=== PATIENT | male | born 1990 | race Two or more races ===

== ENCOUNTER 2018-11-04 00:28 | Inpatient (IN) | payer MEDICARE, MEDICAID ==
[~2018-11-04] VITALS: Ht 172.7 cm; Wt 107.3 kg
[~2018-11-04 00:28] MED LIST: LEVO75TA4 PO; LURA20TA PO; SIMV-259 PO
[2018-11-04 01:30] VITALS: BP 127/84
[2018-11-04] MEDS ORDERED: MAGNESIUM HYDROXIDE SUSPENSION 30 ML UDCUP PO PRN (06:15)
[2018-11-04] MEDS ORDERED: PETROLATUM,WHITE 28 GM JELLY TP PRN (06:15)
[2018-11-04] MEDS ORDERED: ALBUTEROL SULFATE HFA 90 MCG/PUFF 8 GM INHALER IH PRN (06:15)
[2018-11-04] MEDS ORDERED: DOCUSATE SODIUM 100 MG CAPSULE PO PRN (06:15)
[2018-11-04] MEDS ORDERED: CloNIDine HCL 0.1 MG TABLET PO PRN (06:15)
[2018-11-04] MEDS ORDERED: LOPERAMIDE HCL 2 MG CAPSULE PO PRN (06:15)
[2018-11-04] MEDS ORDERED: ONDANSETRON HCL 4 MG TABLET PO PRN (06:15)
[2018-11-04 08:15] VITALS: BP 113/65
[2018-11-04] MEDS: OLANZapine 5 MG TABLET PO SCH (11:02)
[2018-11-04] MEDS: BENZTROPINE MESYLATE 2 MG TABLET PO SCH ×2 (11:02→16:12)
[2018-11-04 14:35] VITALS: BP 120/60
[2018-11-04] MEDS: ACETAMINOPHEN 325 MG TABLET PO PRN (14:35)
[2018-11-04 16:12] VITALS: BP 119/67
[2018-11-04] MEDS: SIMVASTATIN 10 MG TABLET PO SCH (20:27)
[2018-11-04] MEDS: OLANZapine 10 MG TABLET PO SCH (20:28)
[2018-11-04] MEDS: DIVALPROEX SODIUM 500 MG DR TABLET PO SCH (20:28)
[2018-11-04] MEDS: GuaiFENesin/D-METHORPHAN [SUGAR-FREE] 200-20MG/10 ML SYRUP UDCUP PO PRN (21:19)
[2018-11-05 00:48] VITALS: BP 118/72
[2018-11-05] MEDS: LEVOTHYROXINE SODIUM 75 MCG TABLET PO SCH (06:54)
[2018-11-05 08:47] LABS: BASOPHILS % (AUTO) 0.3 % (0.0-2.0); EOSINOPHILS % (AUTO) 3.4 % (1.0-6.0); HEMATOCRIT 42.2 % (41-53); LYMPHOCYTES # (AUTO) 5.9 K/uL (1.0-4.8); LYMPHOCYTES % (AUTO) 34.6 % (22.0-44.0); MEAN CORPUSCULAR HEMOGLOBIN 29.6 pg (26.0-34.0); MEAN CORPUSCULAR HGB CONC 33.1 G/dL (31.0-37.0); MEAN CORPUSCULAR VOLUME 89 fL (80-100); MONOCYTES # (AUTO) 0.7 K/uL (0.1-1.0); MONOCYTES % (AUTO) 4.3 % (2.0-9.0); NEUTROPHILS # (AUTO) 9.7 K/uL (1.8-7.7); NEUTROPHILS % (AUTO) 57.4 % (40.0-70.0); PLATELET COUNT (AUTO) 337 K/uL (150-450); RED BLOOD CELL COUNT(AUTO) 4.73 MIL/uL (4.50-5.90); RED CELL DISTRIBUTION WIDTH 13.7 % (11.5-14.5)
[2018-11-05 09:01] LABS: ALANINE AMINOTRANSFERASE 33 U/L (12-78); ALBUMIN 3.3 g/dL (3.4-5.0); ALKALINE PHOSPHATASE 57 U/L (46-116); ANION GAP 8 mmol/L (8-16); ASPARTATE AMINOTRANSFERASE 28 U/L (15-37); BILIRUBIN,TOTAL 0.3 mg/dL (0.1-1.0); CALCIUM, TOTAL 8.2 mg/dL (8.8-10.5); CARBON DIOXIDE 25 mmol/L (22-29); CHLORIDE 106 mmol/L (98-107); CHOL/HDL RATIO 5.1 (4.2-7.3); CHOLESTEROL 107 mg/dL (131-200); CREATININE 0.88 mg/dL (0.60-1.30); GLOMERULAR FILTR. RATE CALC > 60 mL/min (>60); GLUCOSE,RANDOM 83 mg/dL (70-110); HDL CHOLESTEROL 21 mg/dL (40-60); LDL CHOL (CALC.) 41 mg/dL (0-130); POTASSIUM 3.9 mmol/L (3.5-5.1); SODIUM SERUM 139 mmol/L (136-145); THYROID STIMULATING HORMONE 1.81 uIU/mL (0.36-3.74); TOTAL PROTEIN, SERUM 6.3 g/dL (6.4-8.2); TRIGLYCERIDES 224 mg/dL (15-150); UREA NITROGEN, BLOOD 13 mg/dL (7-18)
[2018-11-05 09:17] LABS: HEMOGLOBIN A1C 5.1 % (4.5-6.2)
[2018-11-05] MEDS: OLANZapine 5 MG TABLET PO SCH (09:36)
[2018-11-05] MEDS: BENZTROPINE MESYLATE 2 MG TABLET PO SCH ×2 (09:36→16:35)
[2018-11-05 14:48] VITALS: BP 112/68
[2018-11-05] MEDS: ACETAMINOPHEN 325 MG TABLET PO PRN (14:48)
[2018-11-05 16:14] VITALS: BP 116/68
[2018-11-05] MEDS: NICOTINE 14 MG/24 HOUR PATCH TD PRN (16:50)
[2018-11-05] MEDS: OLANZapine 10 MG TABLET PO SCH (20:02)
[2018-11-05] MEDS: DIVALPROEX SODIUM 500 MG DR TABLET PO SCH (20:02)
[2018-11-05] MEDS: SIMVASTATIN 10 MG TABLET PO SCH (20:03)
[2018-11-05] MEDS: ZOLPIDEM TARTRATE 10 MG TABLET PO PRN (21:57)
[2018-11-06 01:57] VITALS: BP 117/71
[2018-11-06] MEDS: LEVOTHYROXINE SODIUM 75 MCG TABLET PO SCH (06:52)
[2018-11-06 08:46] LABS: BILIRUBIN,URINE NEGATIVE (NEGATIVE); GLUCOSE, URINE (UA) NEGATIVE (NEGATIVE); KETONES,URINE TRACE mg/dL (NEGATIVE); LEUKOCYTE ESTERASE ,URINE NEGATIVE (NEGATIVE); NITRATE,URINE NEGATIVE (NEGATIVE); OCCULT BLOOD,URINE NEGATIVE (NEGATIVE); PH,URINE 5.5 (5.0-8.0); PROTEIN,URINE NEGATIVE (NEGATIVE); UROBILINOGEN,URINE 0.2 mg/dL (<=1.0)
[2018-11-06 08:48] VITALS: BP 116/69
[2018-11-06 08:52] LABS: AMPHET/METH SCREEN,URINE NEGATIVE (NEGATIVE); BARBITURATE SCREEN, URINE NEGATIVE (NEGATIVE); BENZODIAZEPINES SCREEN,URINE NEGATIVE (NEGATIVE); CANNABINOID SCREEN,URINE POSITIVE (NEGATIVE); COCAINE SCREEN,URINE NEGATIVE (NEGATIVE); METHADONE SCREEN, URINE NEGATIVE (NEGATIVE); OPIATE SCREEN,URINE NEGATIVE (NEGATIVE)
[2018-11-06 08:53] LABS: PHENCYCLIDINE SCREEN,URINE NEGATIVE (NEGATIVE)
[2018-11-06 09:20] LABS: APPEARANCE,URINE HAZY (CLEAR)
[2018-11-06] MEDS: BENZTROPINE MESYLATE 2 MG TABLET PO SCH ×2 (09:37→16:40)
[2018-11-06] MEDS: OLANZapine 5 MG TABLET PO SCH (09:37)
[2018-11-06] MEDS: ACETAMINOPHEN 325 MG TABLET PO PRN ×2 (13:59→22:08)
[2018-11-06 16:18] VITALS: BP 122/73
[2018-11-06 18:30] VITALS: BP 125/82
[2018-11-06] MEDS: IBUPROFEN 400 MG TABLET PO PRN (18:31)
[2018-11-06] MEDS: DIVALPROEX SODIUM 500 MG DR TABLET PO SCH (20:32)
[2018-11-06] MEDS: SIMVASTATIN 10 MG TABLET PO SCH (20:32)
[2018-11-06] MEDS: OLANZapine 10 MG TABLET PO SCH (20:32)
[2018-11-07 06:28] VITALS: BP 115/76
[2018-11-07] MEDS: LEVOTHYROXINE SODIUM 75 MCG TABLET PO SCH (06:31)
[2018-11-07 08:27] VITALS: BP 107/68
[2018-11-07] MEDS: BENZTROPINE MESYLATE 2 MG TABLET PO SCH ×2 (08:51→16:06)
[2018-11-07] MEDS: OLANZapine 5 MG TABLET PO SCH (08:53)
[2018-11-07] MEDS: NICOTINE 14 MG/24 HOUR PATCH TD PRN (16:08)
[2018-11-07 16:19] VITALS: BP 117/74
[2018-11-07] MEDS: GuaiFENesin/D-METHORPHAN [SUGAR-FREE] 200-20MG/10 ML SYRUP UDCUP PO PRN (16:34)
[2018-11-07] MEDS: DIVALPROEX SODIUM 500 MG DR TABLET PO SCH (20:08)
[2018-11-07] MEDS: SIMVASTATIN 10 MG TABLET PO SCH (20:08)
[2018-11-07] MEDS: OLANZapine 10 MG TABLET PO SCH (20:08)
[2018-11-07 22:53] VITALS: BP 116/74
[2018-11-07] MEDS: ACETAMINOPHEN 325 MG TABLET PO PRN (22:53)
[2018-11-08 05:18] VITALS: BP 120/81
[2018-11-08] MEDS: LEVOTHYROXINE SODIUM 75 MCG TABLET PO SCH (07:00)
[2018-11-08] MEDS: BENZTROPINE MESYLATE 2 MG TABLET PO SCH ×2 (09:55→16:57)
[2018-11-08] MEDS: OLANZapine 5 MG TABLET PO SCH (09:56)
[2018-11-08 16:38] VITALS: BP 117/73
[2018-11-08] MEDS: ACETAMINOPHEN 325 MG TABLET PO PRN (20:20)
[2018-11-08] MEDS: DIVALPROEX SODIUM 500 MG DR TABLET PO SCH (20:20)
[2018-11-08] MEDS: SIMVASTATIN 10 MG TABLET PO SCH (20:20)
[2018-11-08] MEDS: OLANZapine 10 MG TABLET PO SCH (20:20)
[2018-11-08] MEDS: ZOLPIDEM TARTRATE 10 MG TABLET PO PRN (21:56)
[2018-11-09 00:16] VITALS: BP 136/76
[2018-11-09] MEDS: LEVOTHYROXINE SODIUM 75 MCG TABLET PO SCH (06:08)
[2018-11-09 08:13] VITALS: BP 142/89
[2018-11-09 08:26] LABS: BASOPHILS % (AUTO) 0.3 % (0.0-2.0); EOSINOPHILS % (AUTO) 4.6 % (1.0-6.0); HEMATOCRIT 43.1 % (41-53); HEMOGLOBIN 15.2 g/dL (13.5-17.5); LYMPHOCYTES # (AUTO) 6.1 K/uL (1.0-4.8); LYMPHOCYTES % (AUTO) 58.2 % (22.0-44.0); MEAN CORPUSCULAR HGB CONC 35.3 G/dL (31.0-37.0); MEAN CORPUSCULAR VOLUME 88 fL (80-100); MONOCYTES # (AUTO) 0.6 K/uL (0.1-1.0); MONOCYTES % (AUTO) 5.4 % (2.0-9.0); NEUTROPHILS # (AUTO) 3.3 K/uL (1.8-7.7); NEUTROPHILS % (AUTO) 31.5 % (40.0-70.0); PLATELET COUNT (AUTO) 307 K/uL (150-450); RED BLOOD CELL COUNT(AUTO) 4.91 MIL/uL (4.50-5.90); RED CELL DISTRIBUTION WIDTH 13.4 % (11.5-14.5)
[2018-11-09] MEDS: OLANZapine 5 MG TABLET PO SCH (08:50)
[2018-11-09] MEDS: BENZTROPINE MESYLATE 2 MG TABLET PO SCH ×2 (08:50→16:28)
[2018-11-09] MEDS: NICOTINE 14 MG/24 HOUR PATCH TD PRN (12:17)
[2018-11-09] MEDS: IBUPROFEN 400 MG TABLET PO PRN (16:02)
[2018-11-09 16:22] VITALS: BP 131/76
[2018-11-09] MEDS: OLANZapine 10 MG TABLET PO SCH (20:42)
[2018-11-09] MEDS: SIMVASTATIN 10 MG TABLET PO SCH (20:42)
[2018-11-09] MEDS: DIVALPROEX SODIUM 500 MG DR TABLET PO SCH (20:42)
[2018-11-10 02:47] VITALS: BP 139/75
[2018-11-10] MEDS: LEVOTHYROXINE SODIUM 75 MCG TABLET PO SCH (06:41)
[2018-11-10] MEDS ORDERED: LOPERAMIDE HCL 2 MG CAPSULE PO PRN (07:15)
[2018-11-10 08:10] VITALS: BP 126/72
[2018-11-10] MEDS: OLANZapine 5 MG TABLET PO SCH (08:14)
[2018-11-10] MEDS: BENZTROPINE MESYLATE 2 MG TABLET PO SCH ×2 (08:14→16:35)
[2018-11-10] MEDS: LORazepam 2 MG TABLET PO PRN (08:14)
[2018-11-10 16:31] VITALS: BP 124/86
[2018-11-10] MEDS: ACETAMINOPHEN 325 MG TABLET PO PRN (20:23)
[2018-11-10] MEDS: SIMVASTATIN 10 MG TABLET PO SCH (20:33)
[2018-11-10] MEDS: DIVALPROEX SODIUM 500 MG DR TABLET PO SCH (20:33)
[2018-11-10] MEDS: OLANZapine 10 MG TABLET PO SCH (20:33)
[2018-11-11 01:00] VITALS: BP 127/77
[2018-11-11] MEDS: LEVOTHYROXINE SODIUM 75 MCG TABLET PO SCH (06:38)
[2018-11-11 08:11] LABS: ANION GAP 4 mmol/L (8-16); CALCIUM, TOTAL 8.7 mg/dL (8.8-10.5); CARBON DIOXIDE 33 mmol/L (22-29); CHLORIDE 102 mmol/L (98-107); CREATININE 0.83 mg/dL (0.60-1.30); GLOMERULAR FILTR. RATE CALC > 60 mL/min (>60); GLUCOSE,RANDOM 95 mg/dL (70-110); POTASSIUM 4.4 mmol/L (3.5-5.1); SODIUM SERUM 139 mmol/L (136-145); UREA NITROGEN, BLOOD 13 mg/dL (7-18)
[2018-11-11] MEDS: BENZTROPINE MESYLATE 2 MG TABLET PO SCH ×2 (08:47→16:53)
[2018-11-11] MEDS: OLANZapine 5 MG TABLET PO SCH (08:47)
[2018-11-11 13:39] VITALS: BP 118/78
[2018-11-11] MEDS: ACETAMINOPHEN 325 MG TABLET PO PRN ×2 (13:39→22:31)
[2018-11-11 16:17] VITALS: BP 136/80
[2018-11-11] MEDS: OLANZapine 10 MG TABLET PO SCH (20:03)
[2018-11-11] MEDS: DIVALPROEX SODIUM 500 MG DR TABLET PO SCH (20:03)
[2018-11-11] MEDS: SIMVASTATIN 10 MG TABLET PO SCH (20:04)
[2018-11-11 22:31] VITALS: BP 124/76
[2018-11-12 04:39] VITALS: BP 117/78
[2018-11-12] MEDS: LEVOTHYROXINE SODIUM 75 MCG TABLET PO SCH (06:40)
[2018-11-12] MEDS: ACETAMINOPHEN 325 MG TABLET PO PRN ×2 (07:05→16:08)
[2018-11-12 08:33] VITALS: BP 126/80
[2018-11-12] MEDS: OLANZapine 5 MG TABLET PO SCH (08:45)
[2018-11-12] MEDS: BENZTROPINE MESYLATE 2 MG TABLET PO SCH ×2 (08:45→16:08)
[2018-11-12 16:01] VITALS: BP 135/90
[2018-11-12] MEDS: NICOTINE 14 MG/24 HOUR PATCH TD PRN (19:19)
[2018-11-12] MEDS: DIVALPROEX SODIUM 500 MG DR TABLET PO SCH (20:03)
[2018-11-12] MEDS: SIMVASTATIN 10 MG TABLET PO SCH (20:04)
[2018-11-12] MEDS: OLANZapine 10 MG TABLET PO SCH (20:04)
[2018-11-12 20:05] VITALS: BP 128/78
[2018-11-12] MEDS: IBUPROFEN 400 MG TABLET PO PRN (20:05)
[2018-11-13 01:14] VITALS: BP 132/88
[2018-11-13] MEDS: ACETAMINOPHEN 325 MG TABLET PO PRN (01:16)
[2018-11-13] MEDS: LEVOTHYROXINE SODIUM 75 MCG TABLET PO SCH (07:01)
[2018-11-13 08:00] VITALS: BP 150/74
[2018-11-13] MEDS: OLANZapine 5 MG TABLET PO SCH (09:11)
[2018-11-13] MEDS: BENZTROPINE MESYLATE 2 MG TABLET PO SCH ×2 (09:12→16:36)
[2018-11-13] MEDS: OLANZapine 10 MG TABLET PO SCH (20:38)
[2018-11-13] MEDS: SIMVASTATIN 10 MG TABLET PO SCH (20:38)
[2018-11-13] MEDS: DIVALPROEX SODIUM 500 MG DR TABLET PO SCH (20:38)
[2018-11-14 00:05] VITALS: BP 131/89
[2018-11-14] MEDS: LEVOTHYROXINE SODIUM 75 MCG TABLET PO SCH (07:05)
[2018-11-14 08:21] VITALS: BP 128/84
[2018-11-14] MEDS: OLANZapine 5 MG TABLET PO SCH (08:38)
[2018-11-14] MEDS: BENZTROPINE MESYLATE 2 MG TABLET PO SCH ×2 (08:38→16:37)
[2018-11-14 16:38] VITALS: BP 137/89
[2018-11-14] MEDS: ACETAMINOPHEN 325 MG TABLET PO PRN ×2 (18:24→23:41)
[2018-11-14] MEDS: OLANZapine 10 MG TABLET PO SCH (20:38)
[2018-11-14] MEDS: DIVALPROEX SODIUM 500 MG DR TABLET PO SCH (20:38)
[2018-11-14] MEDS: SIMVASTATIN 10 MG TABLET PO SCH (20:38)
[2018-11-15] VITALS: BP 136/84
[2018-11-15] MEDS: LEVOTHYROXINE SODIUM 75 MCG TABLET PO SCH (06:55)
[2018-11-15] MEDS: OLANZapine 5 MG TABLET PO SCH (08:46)
[2018-11-15] MEDS: BENZTROPINE MESYLATE 2 MG TABLET PO SCH ×2 (08:46→16:36)
[2018-11-15 08:49] LABS: ANION GAP 6 mmol/L (8-16); CALCIUM, TOTAL 8.8 mg/dL (8.8-10.5); CARBON DIOXIDE 31 mmol/L (22-29); CHLORIDE 101 mmol/L (98-107); CREATININE 0.75 mg/dL (0.60-1.30); GLOMERULAR FILTR. RATE CALC > 60 mL/min (>60); GLUCOSE,RANDOM 94 mg/dL (70-110); POTASSIUM 3.9 mmol/L (3.5-5.1); SODIUM SERUM 138 mmol/L (136-145); UREA NITROGEN, BLOOD 16 mg/dL (7-18)
[2018-11-15] MEDS ORDERED: TUBERCULIN, PURIFIED PROTEIN DERIVATIVE 5 TU/0.1 ML SYRINGE ID ONE (11:30)
[2018-11-15] MEDS: ACETAMINOPHEN 325 MG TABLET PO PRN (17:22)
[2018-11-15] MEDS: LORazepam 2 MG TABLET PO PRN (18:05)
[2018-11-15] MEDS: QUEtiapine FUMARATE 100 MG TABLET PO PRN (18:08)
[2018-11-15] MEDS: DIVALPROEX SODIUM 500 MG DR TABLET PO SCH (20:40)
[2018-11-15] MEDS: SIMVASTATIN 10 MG TABLET PO SCH (20:40)
[2018-11-15] MEDS: OLANZapine 10 MG TABLET PO SCH (20:40)
[2018-11-16] MEDS: ACETAMINOPHEN 325 MG TABLET PO PRN ×2 (00:56→20:34)
[2018-11-16 01:00] VITALS: BP 128/69
[2018-11-16] MEDS: LEVOTHYROXINE SODIUM 75 MCG TABLET PO SCH (06:31)
[2018-11-16 08:29] VITALS: BP 109/65
[2018-11-16] MEDS: BENZTROPINE MESYLATE 2 MG TABLET PO SCH ×2 (08:49→17:15)
[2018-11-16] MEDS: OLANZapine 5 MG TABLET PO SCH (08:49)
[2018-11-16] MEDS ORDERED: MULTIVITAMINS, THERAPEUTIC TABLET PO SCH (09:00)
[2018-11-16] MEDS: OLANZapine 10 MG TABLET PO SCH (20:49)
[2018-11-16] MEDS: SIMVASTATIN 10 MG TABLET PO SCH (20:49)
[2018-11-16] MEDS: DIVALPROEX SODIUM 500 MG DR TABLET PO SCH (20:49)
[2018-11-16] MEDS: IBUPROFEN 400 MG TABLET PO PRN (22:31)
[2018-11-17 01:00] VITALS: BP 140/88
[2018-11-17] MEDS: LORazepam 2 MG TABLET PO PRN (01:07)
[2018-11-17] MEDS: LEVOTHYROXINE SODIUM 75 MCG TABLET PO SCH (06:33)
[2018-11-17] MEDS: OLANZapine 5 MG TABLET PO SCH (08:47)
[2018-11-17] MEDS: BENZTROPINE MESYLATE 2 MG TABLET PO SCH ×2 (08:47→20:04)
[2018-11-17] MEDS: BuPROPion HCL XL 150 MG ER TABLET PO SCH (12:38)
[2018-11-17 13:19] VITALS: BP 128/82
[2018-11-17] MEDS: ACETAMINOPHEN 325 MG TABLET PO PRN (13:19)
[2018-11-17 16:13] VITALS: BP 116/74
[2018-11-17] MEDS: OLANZapine 10 MG TABLET PO SCH (20:04)
[2018-11-17] MEDS: DIVALPROEX SODIUM 500 MG DR TABLET PO SCH (20:04)
[2018-11-17] MEDS: SIMVASTATIN 10 MG TABLET PO SCH (20:04)
[2018-11-17 20:42] VITALS: BP 126/78
[2018-11-17] MEDS: IBUPROFEN 400 MG TABLET PO PRN (20:42)
[2018-11-18 00:11] VITALS: BP 118/70
[2018-11-18] MEDS: ACETAMINOPHEN 325 MG TABLET PO PRN ×4 (00:11→23:44)
[2018-11-18] MEDS: LORazepam 2 MG TABLET PO PRN ×3 (01:29→14:31)
[2018-11-18] MEDS: ZOLPIDEM TARTRATE 10 MG TABLET PO PRN (02:36)
[2018-11-18 02:37] VITALS: BP 140/72
[2018-11-18] MEDS: LEVOTHYROXINE SODIUM 75 MCG TABLET PO SCH (06:52)
[2018-11-18] MEDS: BuPROPion HCL XL 150 MG ER TABLET PO SCH (09:11)
[2018-11-18] MEDS: OLANZapine 5 MG TABLET PO SCH (09:11)
[2018-11-18] MEDS: BENZTROPINE MESYLATE 2 MG TABLET PO SCH ×2 (09:11→16:35)
[2018-11-18 09:49] VITALS: BP 128/78
[2018-11-18 11:26] VITALS: BP 140/83
[2018-11-18] MEDS: NICOTINE 14 MG/24 HOUR PATCH TD PRN (14:33)
[2018-11-18 16:16] VITALS: BP 126/83
[2018-11-18 18:08] VITALS: BP 132/82
[2018-11-18] MEDS: OLANZapine 10 MG TABLET PO SCH (20:20)
[2018-11-18] MEDS: DIVALPROEX SODIUM 500 MG DR TABLET PO SCH (20:20)
[2018-11-18] MEDS: SIMVASTATIN 10 MG TABLET PO SCH (20:20)
[2018-11-19 00:23] VITALS: BP 137/100
[2018-11-19] MEDS: IBUPROFEN 400 MG TABLET PO PRN ×2 (00:40→22:15)
[2018-11-19] MEDS: HydrOXYzine PAMOATE 25 MG CAPSULE PO PRN (02:10)
[2018-11-19] MEDS: LEVOTHYROXINE SODIUM 75 MCG TABLET PO SCH (06:32)
[2018-11-19] MEDS: OLANZapine 5 MG TABLET PO SCH (08:59)
[2018-11-19] MEDS: LORazepam 2 MG TABLET PO PRN ×2 (08:59→16:03)
[2018-11-19] MEDS: BENZTROPINE MESYLATE 2 MG TABLET PO SCH ×2 (08:59→16:03)
[2018-11-19] MEDS: BuPROPion HCL XL 150 MG ER TABLET PO SCH (08:59)
[2018-11-19] MEDS: NICOTINE 14 MG/24 HOUR PATCH TD PRN (09:46)
[2018-11-19 10:27] VITALS: BP 133/91
[2018-11-19] MEDS: ACETAMINOPHEN 325 MG TABLET PO PRN ×2 (10:37→19:01)
[2018-11-19] MEDS: OLANZapine 10 MG TABLET PO SCH (20:18)
[2018-11-19] MEDS: SIMVASTATIN 10 MG TABLET PO SCH (20:18)
[2018-11-19] MEDS: DIVALPROEX SODIUM 500 MG DR TABLET PO SCH (20:18)
[2018-11-20 00:10] VITALS: BP 138/92
[2018-11-20] MEDS: HydrOXYzine PAMOATE 25 MG CAPSULE PO PRN (00:11)
[2018-11-20] MEDS: ACETAMINOPHEN 325 MG TABLET PO PRN ×3 (03:01→21:23)
[2018-11-20] MEDS: LEVOTHYROXINE SODIUM 75 MCG TABLET PO SCH (06:29)
[2018-11-20] MEDS: OLANZapine 5 MG TABLET PO SCH (10:19)
[2018-11-20] MEDS: BuPROPion HCL XL 150 MG ER TABLET PO SCH (10:19)
[2018-11-20] MEDS: BENZTROPINE MESYLATE 2 MG TABLET PO SCH ×2 (10:19→16:46)
[2018-11-20 17:02] VITALS: BP 113/77
[2018-11-20] MEDS: IBUPROFEN 400 MG TABLET PO PRN (18:18)
[2018-11-20 18:21] VITALS: BP 128/81
[2018-11-20] MEDS: NICOTINE 14 MG/24 HOUR PATCH TD PRN (19:53)
[2018-11-20] MEDS: SIMVASTATIN 10 MG TABLET PO SCH (20:36)
[2018-11-20] MEDS: OLANZapine 10 MG TABLET PO SCH (20:37)
[2018-11-20] MEDS: DIVALPROEX SODIUM 500 MG DR TABLET PO SCH (20:37)
[2018-11-21] MEDS: MAG HYDROX/AL HYDROX/SIMETH ES 30 ML SUSPENSION UDCUP PO PRN (02:03)
[2018-11-21] MEDS: ZOLPIDEM TARTRATE 10 MG TABLET PO PRN ×2 (02:09→23:14)
[2018-11-21 02:22] VITALS: BP 130/75
[2018-11-21 05:45] VITALS: BP 143/87
[2018-11-21] MEDS: ACETAMINOPHEN 325 MG TABLET PO PRN ×2 (05:48→19:19)
[2018-11-21] MEDS: LEVOTHYROXINE SODIUM 75 MCG TABLET PO SCH (06:55)
[2018-11-21 08:20] VITALS: BP 134/80
[2018-11-21] MEDS: BuPROPion HCL XL 150 MG ER TABLET PO SCH (08:31)
[2018-11-21] MEDS: OLANZapine 5 MG TABLET PO SCH (08:31)
[2018-11-21] MEDS: BENZTROPINE MESYLATE 2 MG TABLET PO SCH ×2 (08:31→16:24)
[2018-11-21 17:56] VITALS: BP 140/85
[2018-11-21 19:19] VITALS: BP 132/82
[2018-11-21] MEDS: OLANZapine 10 MG TABLET PO SCH (20:21)
[2018-11-21] MEDS: DIVALPROEX SODIUM 500 MG DR TABLET PO SCH (20:21)
[2018-11-21] MEDS: SIMVASTATIN 10 MG TABLET PO SCH (20:21)
[2018-11-22 02:40] VITALS: BP 136/81
[2018-11-22] MEDS: IBUPROFEN 400 MG TABLET PO PRN (02:42)
[2018-11-22] MEDS: ACETAMINOPHEN 325 MG TABLET PO PRN (03:46)
[2018-11-22] MEDS: LEVOTHYROXINE SODIUM 75 MCG TABLET PO SCH (06:39)
[2018-11-22] MEDS: BENZTROPINE MESYLATE 2 MG TABLET PO SCH ×2 (08:10→16:33)
[2018-11-22] MEDS: OLANZapine 5 MG TABLET PO SCH (08:10)
[2018-11-22] MEDS: BuPROPion HCL XL 150 MG ER TABLET PO SCH (08:10)
[2018-11-22] MEDS: LORazepam 2 MG TABLET PO PRN (08:11)
[2018-11-22] MEDS: DIVALPROEX SODIUM 500 MG DR TABLET PO SCH (20:21)
[2018-11-22] MEDS: OLANZapine 10 MG TABLET PO SCH (20:21)
[2018-11-22] MEDS: SIMVASTATIN 10 MG TABLET PO SCH (20:21)
[2018-11-23] VITALS: BP 112/85
[2018-11-23] MEDS: ACETAMINOPHEN 325 MG TABLET PO PRN ×3 (00:11→17:26)
[2018-11-23] MEDS: MAG HYDROX/AL HYDROX/SIMETH ES 30 ML SUSPENSION UDCUP PO PRN (03:53)
[2018-11-23 05:16] LABS: HIV 1-2 SCREEN 4TH GEN W/RFLX Non Reactive (Non Reactive)
[2018-11-23] MEDS: LEVOTHYROXINE SODIUM 75 MCG TABLET PO SCH (06:40)
[2018-11-23] MEDS: BENZTROPINE MESYLATE 2 MG TABLET PO SCH ×2 (08:12→16:47)
[2018-11-23] MEDS: BuPROPion HCL XL 150 MG ER TABLET PO SCH (08:12)
[2018-11-23] MEDS: OLANZapine 5 MG TABLET PO SCH (08:12)
[2018-11-23 08:38] VITALS: BP 106/61
[2018-11-23 16:13] VITALS: BP 126/60
[2018-11-23 17:26] VITALS: BP 115/69
[2018-11-23] MEDS: OLANZapine 10 MG TABLET PO SCH (20:38)
[2018-11-23] MEDS: DIVALPROEX SODIUM 500 MG DR TABLET PO SCH (20:40)
[2018-11-23] MEDS: SIMVASTATIN 10 MG TABLET PO SCH (20:40)
[2018-11-23] MEDS: ZOLPIDEM TARTRATE 10 MG TABLET PO PRN (20:49)
[2018-11-23] MEDS: LORazepam 2 MG TABLET PO PRN (22:05)
[2018-11-24 06:54] VITALS: BP 124/76
[2018-11-24] MEDS: LORazepam 2 MG TABLET PO PRN (07:10)
[2018-11-24] MEDS: LEVOTHYROXINE SODIUM 75 MCG TABLET PO SCH (07:14)
[2018-11-24 08:12] VITALS: BP 133/79
[2018-11-24] MEDS: OLANZapine 5 MG TABLET PO SCH (08:20)
[2018-11-24] MEDS: BuPROPion HCL XL 150 MG ER TABLET PO SCH (08:20)
[2018-11-24] MEDS: BENZTROPINE MESYLATE 2 MG TABLET PO SCH ×2 (08:20→16:27)
[2018-11-24 10:00] VITALS: BP 128/88
[2018-11-24] MEDS: ACETAMINOPHEN 325 MG TABLET PO PRN ×2 (10:00→19:19)
[2018-11-24 16:17] VITALS: BP 128/79
[2018-11-24 19:19] VITALS: BP 122/78
[2018-11-24] MEDS: DIVALPROEX SODIUM 500 MG DR TABLET PO SCH (20:12)
[2018-11-24] MEDS: OLANZapine 10 MG TABLET PO SCH (20:12)
[2018-11-24] MEDS: SIMVASTATIN 10 MG TABLET PO SCH (20:12)
[2018-11-24] MEDS: ZOLPIDEM TARTRATE 10 MG TABLET PO PRN (21:30)
[2018-11-24] MEDS: GuaiFENesin/D-METHORPHAN [SUGAR-FREE] 200-20MG/10 ML SYRUP UDCUP PO PRN (22:01)
[2018-11-24] MEDS: MAG HYDROX/AL HYDROX/SIMETH ES 30 ML SUSPENSION UDCUP PO PRN (23:47)
[2018-11-25 00:31] VITALS: BP 137/80
[2018-11-25] MEDS: IBUPROFEN 400 MG TABLET PO PRN (00:38)
[2018-11-25] MEDS: LEVOTHYROXINE SODIUM 75 MCG TABLET PO SCH (07:13)
[2018-11-25] MEDS: OLANZapine 5 MG TABLET PO SCH (08:07)
[2018-11-25] MEDS: BuPROPion HCL XL 150 MG ER TABLET PO SCH (08:07)
[2018-11-25 08:08] VITALS: BP 121/76
[2018-11-25] MEDS: ACETAMINOPHEN 325 MG TABLET PO PRN ×2 (08:08→20:17)
[2018-11-25] MEDS: BENZTROPINE MESYLATE 2 MG TABLET PO SCH ×2 (08:08→16:12)
[2018-11-25 16:25] VITALS: BP 140/80
[2018-11-25] MEDS: DIVALPROEX SODIUM 500 MG DR TABLET PO SCH (20:17)
[2018-11-25] MEDS: SIMVASTATIN 10 MG TABLET PO SCH (20:17)
[2018-11-25] MEDS: OLANZapine 10 MG TABLET PO SCH (20:17)
[2018-11-25] MEDS: ZOLPIDEM TARTRATE 10 MG TABLET PO PRN (21:40)
[2018-11-26 00:58] VITALS: BP 131/83
[2018-11-26] MEDS: LEVOTHYROXINE SODIUM 75 MCG TABLET PO SCH (06:06)
[2018-11-26] MEDS: OLANZapine 5 MG TABLET PO SCH (08:12)
[2018-11-26] MEDS: BuPROPion HCL XL 150 MG ER TABLET PO SCH (08:12)
[2018-11-26] MEDS: BENZTROPINE MESYLATE 2 MG TABLET PO SCH ×2 (08:13→16:55)
[2018-11-26] MEDS: NICOTINE 14 MG/24 HOUR PATCH TD PRN (08:36)
[2018-11-26 09:18] VITALS: BP 126/82
[2018-11-26] MEDS: ACETAMINOPHEN 325 MG TABLET PO PRN ×2 (09:18→20:28)
[2018-11-26] MEDS: SIMVASTATIN 10 MG TABLET PO SCH (20:02)
[2018-11-26] MEDS: OLANZapine 10 MG TABLET PO SCH (20:03)
[2018-11-26] MEDS: DIVALPROEX SODIUM 500 MG DR TABLET PO SCH (20:03)
[2018-11-26 20:28] VITALS: BP 132/78
[2018-11-27 00:21] VITALS: BP 127/77
[2018-11-27 03:18] VITALS: BP 128/78
[2018-11-27] MEDS: IBUPROFEN 400 MG TABLET PO PRN (03:21)
[2018-11-27] MEDS: LEVOTHYROXINE SODIUM 75 MCG TABLET PO SCH (06:38)
[2018-11-27] MEDS: BENZTROPINE MESYLATE 2 MG TABLET PO SCH ×2 (08:49→16:12)
[2018-11-27] MEDS: OLANZapine 5 MG TABLET PO SCH (08:49)
[2018-11-27] MEDS: BuPROPion HCL XL 150 MG ER TABLET PO SCH (08:49)
[2018-11-27 11:21] VITALS: BP 102/62
[2018-11-27 16:16] VITALS: BP 101/68
[2018-11-27] MEDS: ACETAMINOPHEN 325 MG TABLET PO PRN (17:29)
[2018-11-27] MEDS: SIMVASTATIN 10 MG TABLET PO SCH (20:21)
[2018-11-27] MEDS: OLANZapine 10 MG TABLET PO SCH (20:21)
[2018-11-27] MEDS: DIVALPROEX SODIUM 500 MG DR TABLET PO SCH (20:22)
[2018-11-28 01:35] VITALS: BP 134/86
[2018-11-28] MEDS: ACETAMINOPHEN 325 MG TABLET PO PRN ×2 (01:37→19:51)
[2018-11-28] MEDS: MAG HYDROX/AL HYDROX/SIMETH ES 30 ML SUSPENSION UDCUP PO PRN (03:38)
[2018-11-28] MEDS: LEVOTHYROXINE SODIUM 75 MCG TABLET PO SCH (06:33)
[2018-11-28] MEDS: BuPROPion HCL XL 150 MG ER TABLET PO SCH (08:05)
[2018-11-28] MEDS: OLANZapine 5 MG TABLET PO SCH (08:05)
[2018-11-28] MEDS: BENZTROPINE MESYLATE 2 MG TABLET PO SCH ×2 (08:05→16:38)
[2018-11-28] MEDS: OMEGA-3/DHA/EPA/FISH OIL 1,000 MG CAPSULE PO SCH (08:05)
[2018-11-28 08:49] VITALS: BP 128/80
[2018-11-28] MEDS: NICOTINE 14 MG/24 HOUR PATCH TD PRN (12:57)
[2018-11-28 16:15] VITALS: BP 138/84
[2018-11-28] MEDS: SIMVASTATIN 10 MG TABLET PO SCH (20:35)
[2018-11-28] MEDS: OLANZapine 10 MG TABLET PO SCH (20:35)
[2018-11-28] MEDS: DIVALPROEX SODIUM 500 MG DR TABLET PO SCH (20:35)
[2018-11-28] MEDS: LORazepam 2 MG TABLET PO PRN (21:34)
[2018-11-29 00:10] VITALS: BP 122/79
[2018-11-29] MEDS: LEVOTHYROXINE SODIUM 75 MCG TABLET PO SCH (06:57)
[2018-11-29] MEDS: BENZTROPINE MESYLATE 2 MG TABLET PO SCH ×2 (08:08→17:08)
[2018-11-29] MEDS: OMEGA-3/DHA/EPA/FISH OIL 1,000 MG CAPSULE PO SCH (08:08)
[2018-11-29] MEDS: OLANZapine 5 MG TABLET PO SCH (08:08)
[2018-11-29] MEDS: BuPROPion HCL XL 150 MG ER TABLET PO SCH (08:08)
[2018-11-29 08:19] VITALS: BP 124/93
[2018-11-29 17:27] VITALS: BP 138/91
[2018-11-29] MEDS: LORazepam 2 MG TABLET PO PRN (19:15)
[2018-11-29] MEDS: DIVALPROEX SODIUM 500 MG DR TABLET PO SCH (21:14)
[2018-11-29] MEDS: OLANZapine 10 MG TABLET PO SCH (21:15)
[2018-11-29] MEDS: SIMVASTATIN 10 MG TABLET PO SCH (21:15)
[2018-11-29] MEDS: ZOLPIDEM TARTRATE 10 MG TABLET PO PRN (22:41)
[2018-11-30 06:16] VITALS: BP 114/69
[2018-11-30] MEDS: LEVOTHYROXINE SODIUM 75 MCG TABLET PO SCH (06:35)
[2018-11-30] MEDS: BuPROPion HCL XL 150 MG ER TABLET PO SCH (08:00)
[2018-11-30] MEDS: OMEGA-3/DHA/EPA/FISH OIL 1,000 MG CAPSULE PO SCH (08:00)
[2018-11-30] MEDS: OLANZapine 5 MG TABLET PO SCH (08:00)
[2018-11-30] MEDS: BENZTROPINE MESYLATE 2 MG TABLET PO SCH ×2 (08:22→16:34)
[2018-11-30 08:35] VITALS: BP 116/72
[2018-11-30] MEDS: ACETAMINOPHEN 325 MG TABLET PO PRN ×2 (08:35→16:50)
[2018-11-30 16:33] VITALS: BP 138/81
[2018-11-30 16:50] VITALS: BP 128/76
[2018-11-30] MEDS: OLANZapine 10 MG TABLET PO SCH (20:14)
[2018-11-30] MEDS: DIVALPROEX SODIUM 500 MG DR TABLET PO SCH (20:15)
[2018-11-30] MEDS: SIMVASTATIN 10 MG TABLET PO SCH (20:17)
[2018-11-30] MEDS: LORazepam 2 MG TABLET PO PRN (20:47)
[2018-11-30] MEDS: ZOLPIDEM TARTRATE 10 MG TABLET PO PRN (21:25)
[2018-12-01 05:00] VITALS: BP 125/75
[2018-12-01] MEDS: QUEtiapine FUMARATE 100 MG TABLET PO PRN (05:00)
[2018-12-01] MEDS: LEVOTHYROXINE SODIUM 75 MCG TABLET PO SCH (06:39)
[2018-12-01] MEDS: BuPROPion HCL XL 150 MG ER TABLET PO SCH (08:01)
[2018-12-01] MEDS: OMEGA-3/DHA/EPA/FISH OIL 1,000 MG CAPSULE PO SCH (08:01)
[2018-12-01] MEDS: OLANZapine 5 MG TABLET PO SCH (08:01)
[2018-12-01] MEDS: BENZTROPINE MESYLATE 2 MG TABLET PO SCH ×2 (08:01→16:18)
[2018-12-01] MEDS: NICOTINE 14 MG/24 HOUR PATCH TD PRN (08:49)
[2018-12-01 09:07] VITALS: BP 135/77
[2018-12-01] MEDS: ACETAMINOPHEN 325 MG TABLET PO PRN ×2 (09:18→18:21)
[2018-12-01] MEDS: LORazepam 2 MG TABLET PO PRN ×2 (11:57→18:34)
[2018-12-01 18:21] VITALS: BP 126/78
[2018-12-01] MEDS: OLANZapine 10 MG TABLET PO SCH (20:08)
[2018-12-01] MEDS: SIMVASTATIN 10 MG TABLET PO SCH (20:08)
[2018-12-01] MEDS: DIVALPROEX SODIUM 500 MG DR TABLET PO SCH (20:09)
[2018-12-01] MEDS: ZOLPIDEM TARTRATE 10 MG TABLET PO PRN (20:52)
[2018-12-01 21:45] VITALS: BP 122/80
[2018-12-01] MEDS: IBUPROFEN 400 MG TABLET PO PRN (21:45)
[2018-12-01] MEDS: GuaiFENesin/D-METHORPHAN [SUGAR-FREE] 200-20MG/10 ML SYRUP UDCUP PO PRN (21:45)
[2018-12-02 05:54] VITALS: BP 120/78
[2018-12-02] MEDS: LEVOTHYROXINE SODIUM 75 MCG TABLET PO SCH (06:38)
[2018-12-02] MEDS: BuPROPion HCL XL 150 MG ER TABLET PO SCH (08:06)
[2018-12-02] MEDS: OLANZapine 5 MG TABLET PO SCH (08:06)
[2018-12-02] MEDS: BENZTROPINE MESYLATE 2 MG TABLET PO SCH ×2 (08:06→16:34)
[2018-12-02] MEDS: OMEGA-3/DHA/EPA/FISH OIL 1,000 MG CAPSULE PO SCH (08:06)
[2018-12-02 08:19] VITALS: BP 128/84
[2018-12-02] MEDS: ACETAMINOPHEN 325 MG TABLET PO PRN (08:19)
[2018-12-02] MEDS: NICOTINE 14 MG/24 HOUR PATCH TD PRN (08:20)
[2018-12-02 09:25] VITALS: BP 137/90
[2018-12-02 16:18] VITALS: BP 118/76
[2018-12-02] MEDS: SIMVASTATIN 10 MG TABLET PO SCH (20:54)
[2018-12-02] MEDS: OLANZapine 10 MG TABLET PO SCH (20:54)
[2018-12-02] MEDS: DIVALPROEX SODIUM 500 MG DR TABLET PO SCH (20:54)
[2018-12-02] MEDS: LORazepam 2 MG TABLET PO PRN (21:18)
[2018-12-02] MEDS: ZOLPIDEM TARTRATE 10 MG TABLET PO PRN (22:43)
[2018-12-02] MEDS: MAG HYDROX/AL HYDROX/SIMETH ES 30 ML SUSPENSION UDCUP PO PRN (23:42)
[2018-12-03] VITALS: BP 136/87
[2018-12-03] MEDS: ACETAMINOPHEN 325 MG TABLET PO PRN ×2 (02:51→11:15)
[2018-12-03 04:45] VITALS: BP 130/81
[2018-12-03] MEDS: IBUPROFEN 400 MG TABLET PO PRN (04:46)
[2018-12-03] MEDS: LEVOTHYROXINE SODIUM 75 MCG TABLET PO SCH (06:25)
[2018-12-03] MEDS: BuPROPion HCL XL 150 MG ER TABLET PO SCH (08:01)
[2018-12-03] MEDS: BENZTROPINE MESYLATE 2 MG TABLET PO SCH ×2 (08:01→16:49)
[2018-12-03] MEDS: OLANZapine 5 MG TABLET PO SCH (08:01)
[2018-12-03] MEDS: OMEGA-3/DHA/EPA/FISH OIL 1,000 MG CAPSULE PO SCH (08:01)
[2018-12-03 08:35] VITALS: BP 140/82
[2018-12-03 19:03] VITALS: BP 136/74
[2018-12-03] MEDS: DIVALPROEX SODIUM 500 MG DR TABLET PO SCH (20:30)
[2018-12-03] MEDS: OLANZapine 10 MG TABLET PO SCH (20:30)
[2018-12-03] MEDS: SIMVASTATIN 10 MG TABLET PO SCH (20:31)
[2018-12-04 00:10] VITALS: BP 133/80
[2018-12-04] MEDS: LEVOTHYROXINE SODIUM 75 MCG TABLET PO SCH (06:14)
[2018-12-04] MEDS: OLANZapine 5 MG TABLET PO SCH (08:03)
[2018-12-04] MEDS: BENZTROPINE MESYLATE 2 MG TABLET PO SCH ×2 (08:03→16:49)
[2018-12-04] MEDS: OMEGA-3/DHA/EPA/FISH OIL 1,000 MG CAPSULE PO SCH (08:03)
[2018-12-04] MEDS: BuPROPion HCL XL 150 MG ER TABLET PO SCH (08:03)
[2018-12-04] MEDS: LORazepam 2 MG TABLET PO PRN ×2 (08:08→20:19)
[2018-12-04 08:09] VITALS: BP 131/86
[2018-12-04] MEDS: ACETAMINOPHEN 325 MG TABLET PO PRN ×2 (08:09→18:29)
[2018-12-04] MEDS: NICOTINE 14 MG/24 HOUR PATCH TD PRN (08:09)
[2018-12-04 16:58] VITALS: BP 116/61
[2018-12-04 18:29] VITALS: BP 122/68
[2018-12-04] MEDS: OLANZapine 10 MG TABLET PO SCH (20:18)
[2018-12-04] MEDS: SIMVASTATIN 10 MG TABLET PO SCH (20:18)
[2018-12-04] MEDS: DIVALPROEX SODIUM 500 MG DR TABLET PO SCH (20:18)
[2018-12-05 06:34] VITALS: BP 121/68
[2018-12-05] MEDS: LEVOTHYROXINE SODIUM 75 MCG TABLET PO SCH (06:39)
[2018-12-05] MEDS: BENZTROPINE MESYLATE 2 MG TABLET PO SCH ×2 (08:04→16:37)
[2018-12-05] MEDS: NICOTINE 14 MG/24 HOUR PATCH TD PRN (08:04)
[2018-12-05] MEDS: OMEGA-3/DHA/EPA/FISH OIL 1,000 MG CAPSULE PO SCH (08:04)
[2018-12-05] MEDS: OLANZapine 5 MG TABLET PO SCH (08:04)
[2018-12-05] MEDS: BuPROPion HCL XL 150 MG ER TABLET PO SCH (08:04)
[2018-12-05 08:32] VITALS: BP 139/72
[2018-12-05 09:09] VITALS: BP 132/74
[2018-12-05] MEDS: ACETAMINOPHEN 325 MG TABLET PO PRN (09:09)
[2018-12-05 20:17] VITALS: BP 135/71
[2018-12-05 20:29] VITALS: BP 128/62
[2018-12-05] MEDS: OLANZapine 10 MG TABLET PO SCH (20:37)
[2018-12-05] MEDS: DIVALPROEX SODIUM 500 MG DR TABLET PO SCH (20:38)
[2018-12-05] MEDS: SIMVASTATIN 10 MG TABLET PO SCH (20:38)
[2018-12-06 04:21] VITALS: BP 136/73
[2018-12-06] MEDS: LEVOTHYROXINE SODIUM 75 MCG TABLET PO SCH (06:59)
[2018-12-06] MEDS: OLANZapine 5 MG TABLET PO SCH (08:12)
[2018-12-06] MEDS: OMEGA-3/DHA/EPA/FISH OIL 1,000 MG CAPSULE PO SCH (08:12)
[2018-12-06] MEDS: BENZTROPINE MESYLATE 2 MG TABLET PO SCH ×2 (08:12→17:05)
[2018-12-06] MEDS: NICOTINE 14 MG/24 HOUR PATCH TD PRN (08:12)
[2018-12-06] MEDS: BuPROPion HCL XL 150 MG ER TABLET PO SCH (08:12)
[2018-12-06 08:25] VITALS: BP 129/67
[2018-12-06] MEDS: ACETAMINOPHEN 325 MG TABLET PO PRN ×2 (08:25→20:28)
[2018-12-06 08:38] VITALS: BP 129/67
[2018-12-06 16:11] VITALS: BP 124/73
[2018-12-06] MEDS: SIMVASTATIN 10 MG TABLET PO SCH (20:06)
[2018-12-06] MEDS: OLANZapine 10 MG TABLET PO SCH (20:06)
[2018-12-06] MEDS: DIVALPROEX SODIUM 500 MG DR TABLET PO SCH (20:06)
[2018-12-06 20:28] VITALS: BP 128/70
[2018-12-07 03:45] VITALS: BP 120/88
[2018-12-07] MEDS: ACETAMINOPHEN 325 MG TABLET PO PRN ×2 (04:07→14:43)
[2018-12-07] MEDS: LEVOTHYROXINE SODIUM 75 MCG TABLET PO SCH (06:15)
[2018-12-07] MEDS: BuPROPion HCL XL 150 MG ER TABLET PO SCH (08:39)
[2018-12-07] MEDS: OLANZapine 5 MG TABLET PO SCH (08:39)
[2018-12-07] MEDS: OMEGA-3/DHA/EPA/FISH OIL 1,000 MG CAPSULE PO SCH (08:39)
[2018-12-07] MEDS: BENZTROPINE MESYLATE 2 MG TABLET PO SCH ×2 (08:39→16:31)
[2018-12-07] MEDS: NICOTINE 14 MG/24 HOUR PATCH TD PRN (08:42)
[2018-12-07 14:43] VITALS: BP 126/78
[2018-12-07 16:25] VITALS: BP 121/63
[2018-12-07] MEDS: OLANZapine 10 MG TABLET PO SCH (20:35)
[2018-12-07] MEDS: SIMVASTATIN 10 MG TABLET PO SCH (20:35)
[2018-12-07] MEDS: DIVALPROEX SODIUM 500 MG DR TABLET PO SCH (20:36)
[2018-12-08 05:45] VITALS: BP 115/65
[2018-12-08] MEDS: LEVOTHYROXINE SODIUM 75 MCG TABLET PO SCH (06:28)
[2018-12-08] MEDS: OLANZapine 5 MG TABLET PO SCH (08:07)
[2018-12-08] MEDS: BENZTROPINE MESYLATE 2 MG TABLET PO SCH ×2 (08:07→16:33)
[2018-12-08] MEDS: OMEGA-3/DHA/EPA/FISH OIL 1,000 MG CAPSULE PO SCH (08:07)
[2018-12-08] MEDS: BuPROPion HCL XL 150 MG ER TABLET PO SCH (08:07)
[2018-12-08] MEDS: NICOTINE 14 MG/24 HOUR PATCH TD PRN (08:08)
[2018-12-08 08:40] VITALS: BP 114/66
[2018-12-08] MEDS: ACETAMINOPHEN 325 MG TABLET PO PRN (09:02)
[2018-12-08 16:10] VITALS: BP 135/68
[2018-12-08] MEDS: OLANZapine 10 MG TABLET PO SCH (20:41)
[2018-12-08] MEDS: SIMVASTATIN 10 MG TABLET PO SCH (20:41)
[2018-12-08] MEDS: DIVALPROEX SODIUM 500 MG DR TABLET PO SCH (20:41)
[2018-12-09 01:29] VITALS: BP 117/69
[2018-12-09] MEDS: LEVOTHYROXINE SODIUM 75 MCG TABLET PO SCH (06:35)
[2018-12-09] MEDS: BENZTROPINE MESYLATE 2 MG TABLET PO SCH ×2 (08:11→16:50)
[2018-12-09] MEDS: BuPROPion HCL XL 150 MG ER TABLET PO SCH (08:11)
[2018-12-09] MEDS: OMEGA-3/DHA/EPA/FISH OIL 1,000 MG CAPSULE PO SCH (08:11)
[2018-12-09] MEDS: OLANZapine 5 MG TABLET PO SCH (08:11)
[2018-12-09] MEDS: ACETAMINOPHEN 325 MG TABLET PO PRN (08:22)
[2018-12-09] MEDS: NICOTINE 14 MG/24 HOUR PATCH TD PRN (10:24)
[2018-12-09 16:41] VITALS: BP 124/61
[2018-12-09] MEDS: DIVALPROEX SODIUM 500 MG DR TABLET PO SCH (21:10)
[2018-12-09] MEDS: SIMVASTATIN 10 MG TABLET PO SCH (21:11)
[2018-12-09] MEDS: OLANZapine 10 MG TABLET PO SCH (21:11)
[2018-12-10] MEDS: LEVOTHYROXINE SODIUM 75 MCG TABLET PO SCH (06:38)
[2018-12-10 07:16] VITALS: BP 117/74
[2018-12-10 08:21] VITALS: BP 126/71
[2018-12-10] MEDS: BENZTROPINE MESYLATE 2 MG TABLET PO SCH ×2 (08:37→16:43)
[2018-12-10] MEDS: OMEGA-3/DHA/EPA/FISH OIL 1,000 MG CAPSULE PO SCH (08:37)
[2018-12-10] MEDS: BuPROPion HCL XL 150 MG ER TABLET PO SCH (08:37)
[2018-12-10] MEDS: OLANZapine 5 MG TABLET PO SCH (08:37)
[2018-12-10] MEDS: ACETAMINOPHEN 325 MG TABLET PO PRN ×2 (09:41→23:41)
[2018-12-10 17:39] VITALS: BP 125/79
[2018-12-10] MEDS: SIMVASTATIN 10 MG TABLET PO SCH (20:41)
[2018-12-10] MEDS: DIVALPROEX SODIUM 500 MG DR TABLET PO SCH (20:41)
[2018-12-10] MEDS: OLANZapine 10 MG TABLET PO SCH (20:41)
[2018-12-10 23:40] VITALS: BP 138/82
[2018-12-10] MEDS: LORazepam 2 MG TABLET PO PRN (23:40)
[2018-12-11] MEDS: LEVOTHYROXINE SODIUM 75 MCG TABLET PO SCH (06:42)
[2018-12-11] MEDS: OMEGA-3/DHA/EPA/FISH OIL 1,000 MG CAPSULE PO SCH (08:05)
[2018-12-11] MEDS: BENZTROPINE MESYLATE 2 MG TABLET PO SCH ×2 (08:05→16:37)
[2018-12-11] MEDS: OLANZapine 5 MG TABLET PO SCH (08:05)
[2018-12-11] MEDS: BuPROPion HCL XL 150 MG ER TABLET PO SCH (08:05)
[2018-12-11 08:22] VITALS: BP 125/93
[2018-12-11 14:22] VITALS: BP 127/88
[2018-12-11] MEDS: ACETAMINOPHEN 325 MG TABLET PO PRN (14:22)
[2018-12-11] MEDS: NICOTINE 14 MG/24 HOUR PATCH TD PRN (14:23)
[2018-12-11 19:07] VITALS: BP 134/69
[2018-12-11] MEDS: SIMVASTATIN 10 MG TABLET PO SCH (20:36)
[2018-12-11] MEDS: OLANZapine 10 MG TABLET PO SCH (20:37)
[2018-12-11] MEDS: DIVALPROEX SODIUM 500 MG DR TABLET PO SCH (20:37)
[2018-12-12 00:20] VITALS: BP 140/88
[2018-12-12] MEDS: ACETAMINOPHEN 325 MG TABLET PO PRN ×3 (00:28→20:40)
[2018-12-12] MEDS: LORazepam 2 MG TABLET PO PRN (03:17)
[2018-12-12] MEDS: LEVOTHYROXINE SODIUM 75 MCG TABLET PO SCH (06:46)
[2018-12-12] MEDS: BENZTROPINE MESYLATE 2 MG TABLET PO SCH ×2 (08:31→16:38)
[2018-12-12] MEDS: OLANZapine 5 MG TABLET PO SCH (08:31)
[2018-12-12] MEDS: BuPROPion HCL XL 150 MG ER TABLET PO SCH (08:31)
[2018-12-12] MEDS: OMEGA-3/DHA/EPA/FISH OIL 1,000 MG CAPSULE PO SCH (08:32)
[2018-12-12 08:42] VITALS: BP 134/67
[2018-12-12 10:18] VITALS: BP 134/77
[2018-12-12 16:16] VITALS: BP 132/80
[2018-12-12] MEDS: DIVALPROEX SODIUM 500 MG DR TABLET PO SCH (20:33)
[2018-12-12] MEDS: OLANZapine 10 MG TABLET PO SCH (20:33)
[2018-12-12] MEDS: SIMVASTATIN 10 MG TABLET PO SCH (20:33)
[2018-12-13] MEDS: LEVOTHYROXINE SODIUM 75 MCG TABLET PO SCH (06:07)
[2018-12-13 07:12] VITALS: BP 139/68
[2018-12-13] MEDS: NICOTINE 14 MG/24 HOUR PATCH TD PRN (08:15)
[2018-12-13] MEDS: OLANZapine 5 MG TABLET PO SCH (08:15)
[2018-12-13] MEDS: BuPROPion HCL XL 150 MG ER TABLET PO SCH (08:15)
[2018-12-13] MEDS: ACETAMINOPHEN 325 MG TABLET PO PRN (08:15)
[2018-12-13] MEDS: OMEGA-3/DHA/EPA/FISH OIL 1,000 MG CAPSULE PO SCH (08:15)
[2018-12-13] MEDS: BENZTROPINE MESYLATE 2 MG TABLET PO SCH ×2 (08:15→16:45)
[2018-12-13 09:00] VITALS: BP 143/84
[2018-12-13] MEDS: LORazepam 2 MG TABLET PO PRN (09:45)
[2018-12-13 20:12] VITALS: BP 139/62
[2018-12-13] MEDS: OLANZapine 10 MG TABLET PO SCH (20:35)
[2018-12-13] MEDS: SIMVASTATIN 10 MG TABLET PO SCH (20:35)
[2018-12-13] MEDS: DIVALPROEX SODIUM 500 MG DR TABLET PO SCH (20:35)
[2018-12-13] MEDS: ZOLPIDEM TARTRATE 10 MG TABLET PO PRN (21:14)
[2018-12-14 01:36] VITALS: BP 131/86
[2018-12-14] MEDS: LEVOTHYROXINE SODIUM 75 MCG TABLET PO SCH (06:36)
[2018-12-14] MEDS: BENZTROPINE MESYLATE 2 MG TABLET PO SCH ×2 (08:07→16:39)
[2018-12-14] MEDS: BuPROPion HCL XL 150 MG ER TABLET PO SCH (08:07)
[2018-12-14] MEDS: OMEGA-3/DHA/EPA/FISH OIL 1,000 MG CAPSULE PO SCH (08:07)
[2018-12-14] MEDS: OLANZapine 5 MG TABLET PO SCH (08:07)
[2018-12-14 08:10] VITALS: BP 146/82
[2018-12-14] MEDS: NICOTINE 14 MG/24 HOUR PATCH TD PRN (08:10)
[2018-12-14] MEDS: ACETAMINOPHEN 325 MG TABLET PO PRN ×2 (08:10→17:00)
[2018-12-14 08:12] VITALS: BP 146/82
[2018-12-14] MEDS: LORazepam 2 MG TABLET PO PRN (10:59)
[2018-12-14 16:29] VITALS: BP 127/95
[2018-12-14] MEDS: SIMVASTATIN 10 MG TABLET PO SCH (20:38)
[2018-12-14] MEDS: DIVALPROEX SODIUM 500 MG DR TABLET PO SCH (20:38)
[2018-12-14] MEDS: OLANZapine 10 MG TABLET PO SCH (20:38)
[2018-12-15 00:14] VITALS: BP 124/82
[2018-12-15] MEDS: LEVOTHYROXINE SODIUM 75 MCG TABLET PO SCH (06:38)
[2018-12-15] MEDS: BENZTROPINE MESYLATE 2 MG TABLET PO SCH ×2 (08:09→16:19)
[2018-12-15] MEDS: BuPROPion HCL XL 150 MG ER TABLET PO SCH (08:09)
[2018-12-15] MEDS: OMEGA-3/DHA/EPA/FISH OIL 1,000 MG CAPSULE PO SCH (08:09)
[2018-12-15] MEDS: OLANZapine 5 MG TABLET PO SCH (08:09)
[2018-12-15 08:10] VITALS: BP 136/68
[2018-12-15] MEDS: NICOTINE 14 MG/24 HOUR PATCH TD PRN (08:11)
[2018-12-15] MEDS: LORazepam 2 MG TABLET PO PRN (08:35)
[2018-12-15] MEDS: ACETAMINOPHEN 325 MG TABLET PO PRN ×2 (08:36→17:40)
[2018-12-15 11:19] VITALS: BP 128/72
[2018-12-15] MEDS: IBUPROFEN 400 MG TABLET PO PRN (11:19)
[2018-12-15 17:40] VITALS: BP 122/66
[2018-12-15 18:26] VITALS: BP 128/63
[2018-12-15] MEDS: DIVALPROEX SODIUM 500 MG DR TABLET PO SCH (20:36)
[2018-12-15] MEDS: OLANZapine 10 MG TABLET PO SCH (20:36)
[2018-12-15] MEDS: SIMVASTATIN 10 MG TABLET PO SCH (20:36)
[2018-12-16 05:57] VITALS: BP 127/71
[2018-12-16] MEDS: LEVOTHYROXINE SODIUM 75 MCG TABLET PO SCH (06:40)
[2018-12-16] MEDS: OMEGA-3/DHA/EPA/FISH OIL 1,000 MG CAPSULE PO SCH (08:17)
[2018-12-16] MEDS: NICOTINE 14 MG/24 HOUR PATCH TD PRN (08:17)
[2018-12-16 08:18] VITALS: BP 137/77
[2018-12-16] MEDS: ACETAMINOPHEN 325 MG TABLET PO PRN ×2 (08:18→16:50)
[2018-12-16] MEDS: BuPROPion HCL XL 150 MG ER TABLET PO SCH (08:18)
[2018-12-16] MEDS: BENZTROPINE MESYLATE 2 MG TABLET PO SCH ×2 (08:18→16:50)
[2018-12-16] MEDS: OLANZapine 5 MG TABLET PO SCH (08:18)
[2018-12-16 08:46] VITALS: BP 137/77
[2018-12-16] MEDS: GuaiFENesin/D-METHORPHAN [SUGAR-FREE] 200-20MG/10 ML SYRUP UDCUP PO PRN (08:52)
[2018-12-16 16:09] VITALS: BP 145/90
[2018-12-16] MEDS: DIVALPROEX SODIUM 500 MG DR TABLET PO SCH (20:37)
[2018-12-16] MEDS: SIMVASTATIN 10 MG TABLET PO SCH (20:37)
[2018-12-16] MEDS: OLANZapine 10 MG TABLET PO SCH (20:37)
[2018-12-17] VITALS: BP 140/88
[2018-12-17] MEDS: LEVOTHYROXINE SODIUM 75 MCG TABLET PO SCH (06:45)
[2018-12-17] MEDS: BENZTROPINE MESYLATE 2 MG TABLET PO SCH ×2 (08:24→16:54)
[2018-12-17] MEDS: OMEGA-3/DHA/EPA/FISH OIL 1,000 MG CAPSULE PO SCH (08:25)
[2018-12-17] MEDS: OLANZapine 5 MG TABLET PO SCH (08:25)
[2018-12-17] MEDS: BuPROPion HCL XL 150 MG ER TABLET PO SCH (08:25)
[2018-12-17 08:27] VITALS: BP 132/80
[2018-12-17] MEDS: NICOTINE 14 MG/24 HOUR PATCH TD PRN (08:27)
[2018-12-17] MEDS: ACETAMINOPHEN 325 MG TABLET PO PRN ×2 (08:27→19:51)
[2018-12-17 16:20] VITALS: BP 144/90
[2018-12-17] MEDS: DIVALPROEX SODIUM 500 MG DR TABLET PO SCH (20:34)
[2018-12-17] MEDS: SIMVASTATIN 10 MG TABLET PO SCH (20:34)
[2018-12-17] MEDS: OLANZapine 10 MG TABLET PO SCH (20:35)
[2018-12-18 00:46] VITALS: BP 124/72
[2018-12-18] MEDS: LEVOTHYROXINE SODIUM 75 MCG TABLET PO SCH (07:05)
[2018-12-18 08:15] VITALS: BP 134/76
[2018-12-18] MEDS: OLANZapine 5 MG TABLET PO SCH (08:15)
[2018-12-18] MEDS: OMEGA-3/DHA/EPA/FISH OIL 1,000 MG CAPSULE PO SCH (08:15)
[2018-12-18] MEDS: BuPROPion HCL XL 150 MG ER TABLET PO SCH (08:15)
[2018-12-18] MEDS: ACETAMINOPHEN 325 MG TABLET PO PRN ×2 (08:15→17:42)
[2018-12-18] MEDS: BENZTROPINE MESYLATE 2 MG TABLET PO SCH ×2 (08:15→16:44)
[2018-12-18] MEDS: NICOTINE 14 MG/24 HOUR PATCH TD PRN (08:17)
[2018-12-18 08:34] VITALS: BP 137/75
[2018-12-18] MEDS: LORazepam 2 MG TABLET PO PRN (09:07)
[2018-12-18] MEDS: GuaiFENesin/D-METHORPHAN [SUGAR-FREE] 200-20MG/10 ML SYRUP UDCUP PO PRN (09:07)
[2018-12-18 16:36] VITALS: BP 120/70
[2018-12-18] MEDS: MAG HYDROX/AL HYDROX/SIMETH ES 30 ML SUSPENSION UDCUP PO PRN (16:51)
[2018-12-18] MEDS: OLANZapine 10 MG TABLET PO SCH (20:45)
[2018-12-18] MEDS: DIVALPROEX SODIUM 500 MG DR TABLET PO SCH (20:45)
[2018-12-18] MEDS: SIMVASTATIN 10 MG TABLET PO SCH (20:45)
[2018-12-19 05:52] VITALS: BP 118/74
[2018-12-19] MEDS: LEVOTHYROXINE SODIUM 75 MCG TABLET PO SCH (06:28)
[2018-12-19] MEDS: OMEGA-3/DHA/EPA/FISH OIL 1,000 MG CAPSULE PO SCH (08:05)
[2018-12-19] MEDS: BENZTROPINE MESYLATE 2 MG TABLET PO SCH ×2 (08:05→16:38)
[2018-12-19] MEDS: OLANZapine 5 MG TABLET PO SCH (08:05)
[2018-12-19] MEDS: BuPROPion HCL XL 150 MG ER TABLET PO SCH (08:05)
[2018-12-19] MEDS: ACETAMINOPHEN 325 MG TABLET PO PRN (08:06)
[2018-12-19] MEDS: NICOTINE 14 MG/24 HOUR PATCH TD PRN (08:08)
[2018-12-19 08:44] VITALS: BP 120/70
[2018-12-19 16:15] VITALS: BP 127/66
[2018-12-19] MEDS: OLANZapine 10 MG TABLET PO SCH (20:47)
[2018-12-19] MEDS: DIVALPROEX SODIUM 500 MG DR TABLET PO SCH (20:47)
[2018-12-19] MEDS: SIMVASTATIN 10 MG TABLET PO SCH (20:47)
[2018-12-19] MEDS: LORazepam 2 MG TABLET PO PRN (21:15)
[2018-12-20 05:17] VITALS: BP 118/68
[2018-12-20] MEDS: LEVOTHYROXINE SODIUM 75 MCG TABLET PO SCH (06:50)
[2018-12-20 08:00] VITALS: BP 140/80
[2018-12-20] MEDS: OMEGA-3/DHA/EPA/FISH OIL 1,000 MG CAPSULE PO SCH (08:10)
[2018-12-20] MEDS: OLANZapine 5 MG TABLET PO SCH (08:11)
[2018-12-20] MEDS: BENZTROPINE MESYLATE 2 MG TABLET PO SCH ×2 (08:11→16:32)
[2018-12-20] MEDS: NICOTINE 14 MG/24 HOUR PATCH TD PRN (08:11)
[2018-12-20] MEDS: BuPROPion HCL XL 150 MG ER TABLET PO SCH (08:11)
[2018-12-20] MEDS: ACETAMINOPHEN 325 MG TABLET PO PRN ×2 (08:16→17:14)
[2018-12-20 13:40] VITALS: BP 132/78
[2018-12-20] MEDS: IBUPROFEN 400 MG TABLET PO PRN (13:40)
[2018-12-20 16:18] VITALS: BP 120/73
[2018-12-20] MEDS: DIVALPROEX SODIUM 500 MG DR TABLET PO SCH (20:45)
[2018-12-20] MEDS: OLANZapine 10 MG TABLET PO SCH (20:45)
[2018-12-20] MEDS: SIMVASTATIN 10 MG TABLET PO SCH (20:45)
[2018-12-21 06:29] VITALS: BP 137/83
[2018-12-21] MEDS: LEVOTHYROXINE SODIUM 75 MCG TABLET PO SCH (06:58)
[2018-12-21] MEDS: BuPROPion HCL XL 150 MG ER TABLET PO SCH (08:09)
[2018-12-21] MEDS: OMEGA-3/DHA/EPA/FISH OIL 1,000 MG CAPSULE PO SCH (08:09)
[2018-12-21] MEDS: BENZTROPINE MESYLATE 2 MG TABLET PO SCH ×2 (08:09→16:41)
[2018-12-21] MEDS: OLANZapine 5 MG TABLET PO SCH (08:09)
[2018-12-21 08:11] VITALS: BP 131/75
[2018-12-21] MEDS: NICOTINE 14 MG/24 HOUR PATCH TD PRN (08:11)
[2018-12-21] MEDS: ACETAMINOPHEN 325 MG TABLET PO PRN ×2 (08:11→19:08)
[2018-12-21 08:18] VITALS: BP 131/75
[2018-12-21 16:44] VITALS: BP 126/78
[2018-12-21] MEDS: DIVALPROEX SODIUM 500 MG DR TABLET PO SCH (20:42)
[2018-12-21] MEDS: OLANZapine 10 MG TABLET PO SCH (20:42)
[2018-12-21] MEDS: SIMVASTATIN 10 MG TABLET PO SCH (20:42)
[2018-12-22] MEDS: LEVOTHYROXINE SODIUM 75 MCG TABLET PO SCH (06:31)
[2018-12-22 07:17] VITALS: BP 122/77
[2018-12-22] MEDS: ACETAMINOPHEN 325 MG TABLET PO PRN (08:14)
[2018-12-22] MEDS: OMEGA-3/DHA/EPA/FISH OIL 1,000 MG CAPSULE PO SCH (08:14)
[2018-12-22] MEDS: BENZTROPINE MESYLATE 2 MG TABLET PO SCH ×2 (08:14→16:33)
[2018-12-22] MEDS: OLANZapine 5 MG TABLET PO SCH (08:14)
[2018-12-22] MEDS: BuPROPion HCL XL 150 MG ER TABLET PO SCH (08:14)
[2018-12-22 08:15] VITALS: BP 145/70
[2018-12-22] MEDS: NICOTINE 14 MG/24 HOUR PATCH TD PRN (08:16)
[2018-12-22] MEDS: GuaiFENesin/D-METHORPHAN [SUGAR-FREE] 200-20MG/10 ML SYRUP UDCUP PO PRN (10:00)
[2018-12-22] MEDS: MAG HYDROX/AL HYDROX/SIMETH ES 30 ML SUSPENSION UDCUP PO PRN (13:34)
[2018-12-22 16:53] VITALS: BP 147/85
[2018-12-22] MEDS: DIVALPROEX SODIUM 500 MG DR TABLET PO SCH (21:02)
[2018-12-22] MEDS: SIMVASTATIN 10 MG TABLET PO SCH (21:02)
[2018-12-22] MEDS: OLANZapine 10 MG TABLET PO SCH (21:02)
[2018-12-23 06:39] VITALS: BP 128/81
[2018-12-23] MEDS: LEVOTHYROXINE SODIUM 75 MCG TABLET PO SCH (06:40)
[2018-12-23 08:16] VITALS: BP 126/75
[2018-12-23] MEDS: OMEGA-3/DHA/EPA/FISH OIL 1,000 MG CAPSULE PO SCH (08:41)
[2018-12-23] MEDS: BENZTROPINE MESYLATE 2 MG TABLET PO SCH ×2 (08:41→16:56)
[2018-12-23] MEDS: OLANZapine 5 MG TABLET PO SCH (08:41)
[2018-12-23] MEDS: BuPROPion HCL XL 150 MG ER TABLET PO SCH (08:41)
[2018-12-23] MEDS: NICOTINE 14 MG/24 HOUR PATCH TD PRN (08:47)
[2018-12-23] MEDS: ACETAMINOPHEN 325 MG TABLET PO PRN (08:47)
[2018-12-23 16:17] VITALS: BP 124/86
[2018-12-23] MEDS: SIMVASTATIN 10 MG TABLET PO SCH (20:36)
[2018-12-23] MEDS: OLANZapine 10 MG TABLET PO SCH (20:36)
[2018-12-23] MEDS: DIVALPROEX SODIUM 500 MG DR TABLET PO SCH (20:36)
[2018-12-24 01:17] VITALS: BP 119/72
[2018-12-24 01:28] VITALS: BP 123/66
[2018-12-24] MEDS: LEVOTHYROXINE SODIUM 75 MCG TABLET PO SCH (06:15)
[2018-12-24] MEDS: NICOTINE 14 MG/24 HOUR PATCH TD PRN (08:09)
[2018-12-24] MEDS: OMEGA-3/DHA/EPA/FISH OIL 1,000 MG CAPSULE PO SCH (08:09)
[2018-12-24] MEDS: BENZTROPINE MESYLATE 2 MG TABLET PO SCH ×2 (08:09→16:27)
[2018-12-24] MEDS: BuPROPion HCL XL 150 MG ER TABLET PO SCH (08:09)
[2018-12-24] MEDS: OLANZapine 5 MG TABLET PO SCH (08:09)
[2018-12-24 08:27] VITALS: BP 125/88
[2018-12-24 13:55] VITALS: BP 118/82
[2018-12-24] MEDS: ACETAMINOPHEN 325 MG TABLET PO PRN (13:55)
[2018-12-24 16:09] VITALS: BP 134/87
[2018-12-24] MEDS: OLANZapine 10 MG TABLET PO SCH (20:19)
[2018-12-24] MEDS: SIMVASTATIN 10 MG TABLET PO SCH (20:19)
[2018-12-24] MEDS: DIVALPROEX SODIUM 500 MG DR TABLET PO SCH (20:19)
[2018-12-25 01:22] VITALS: BP 127/71
[2018-12-25] MEDS: LEVOTHYROXINE SODIUM 75 MCG TABLET PO SCH (06:44)
[2018-12-25] MEDS: BENZTROPINE MESYLATE 2 MG TABLET PO SCH ×2 (08:34→16:39)
[2018-12-25] MEDS: OMEGA-3/DHA/EPA/FISH OIL 1,000 MG CAPSULE PO SCH (08:34)
[2018-12-25] MEDS: BuPROPion HCL XL 150 MG ER TABLET PO SCH (08:34)
[2018-12-25] MEDS: ACETAMINOPHEN 325 MG TABLET PO PRN ×2 (08:55→17:14)
[2018-12-25] MEDS: OLANZapine 5 MG TABLET PO SCH (08:55)
[2018-12-25 08:56] VITALS: BP 131/79
[2018-12-25] MEDS: NICOTINE 14 MG/24 HOUR PATCH TD PRN (08:56)
[2018-12-25 16:15] VITALS: BP 128/77
[2018-12-25] MEDS: OLANZapine 10 MG TABLET PO SCH (20:33)
[2018-12-25] MEDS: SIMVASTATIN 10 MG TABLET PO SCH (20:33)
[2018-12-25] MEDS: DIVALPROEX SODIUM 500 MG DR TABLET PO SCH (20:33)
[2018-12-25] MEDS: MAG HYDROX/AL HYDROX/SIMETH ES 30 ML SUSPENSION UDCUP PO PRN (22:47)
[2018-12-26 03:44] VITALS: BP 119/81
[2018-12-26] MEDS: LEVOTHYROXINE SODIUM 75 MCG TABLET PO SCH (06:20)
[2018-12-26 08:30] VITALS: BP 128/75
[2018-12-26] MEDS: BENZTROPINE MESYLATE 2 MG TABLET PO SCH ×2 (08:31→16:36)
[2018-12-26] MEDS: OMEGA-3/DHA/EPA/FISH OIL 1,000 MG CAPSULE PO SCH (08:31)
[2018-12-26] MEDS: OLANZapine 5 MG TABLET PO SCH (08:31)
[2018-12-26] MEDS: BuPROPion HCL XL 150 MG ER TABLET PO SCH (08:31)
[2018-12-26] MEDS: NICOTINE 14 MG/24 HOUR PATCH TD PRN (11:57)
[2018-12-26 11:58] VITALS: BP 132/80
[2018-12-26] MEDS: ACETAMINOPHEN 325 MG TABLET PO PRN (11:58)
[2018-12-26 16:18] VITALS: BP 114/70
[2018-12-26] MEDS: DIVALPROEX SODIUM 500 MG DR TABLET PO SCH (20:31)
[2018-12-26] MEDS: SIMVASTATIN 10 MG TABLET PO SCH (20:31)
[2018-12-26] MEDS: OLANZapine 10 MG TABLET PO SCH (20:31)
[2018-12-27 00:15] VITALS: BP 128/70
[2018-12-27] MEDS: LEVOTHYROXINE SODIUM 75 MCG TABLET PO SCH (06:11)
[2018-12-27 08:20] VITALS: BP 125/66
[2018-12-27] MEDS: OMEGA-3/DHA/EPA/FISH OIL 1,000 MG CAPSULE PO SCH (08:25)
[2018-12-27] MEDS: BuPROPion HCL XL 150 MG ER TABLET PO SCH (08:25)
[2018-12-27] MEDS: OLANZapine 5 MG TABLET PO SCH (08:25)
[2018-12-27] MEDS: BENZTROPINE MESYLATE 2 MG TABLET PO SCH ×2 (08:26→16:38)
[2018-12-27] MEDS ORDERED: OLAN5TAB2 PO (10:00)
[2018-12-27] MEDS ORDERED: DIVA-78 PO (10:00)
[2018-12-27] MEDS ORDERED: BENZ2TAB10 PO (10:00)
[2018-12-27] MEDS ORDERED: OMEG-136 PO (10:00)
[2018-12-27] MEDS ORDERED: BUPR-93 PO (10:00)
[2018-12-27] MEDS ORDERED: OLAN10TA3 PO (10:00)
[2018-12-27 10:19] VITALS: BP 126/70
[2018-12-27] MEDS: ACETAMINOPHEN 325 MG TABLET PO PRN ×2 (10:19→19:42)
[2018-12-27] MEDS: NICOTINE 14 MG/24 HOUR PATCH TD PRN (10:31)
[2018-12-27] MEDS: HydrOXYzine PAMOATE 25 MG CAPSULE PO PRN (13:47)
[2018-12-27 16:35] VITALS: BP 140/79
[2018-12-27] MEDS: SIMVASTATIN 10 MG TABLET PO SCH (20:34)
[2018-12-27] MEDS: OLANZapine 10 MG TABLET PO SCH (20:34)
[2018-12-27] MEDS: DIVALPROEX SODIUM 500 MG DR TABLET PO SCH (20:34)
[2018-12-28 00:48] VITALS: BP 120/82
[2018-12-28] MEDS: LEVOTHYROXINE SODIUM 75 MCG TABLET PO SCH (06:19)
[2018-12-28 08:00] VITALS: BP 131/76
[2018-12-28] MEDS: OLANZapine 5 MG TABLET PO SCH (08:06)
[2018-12-28] MEDS: OMEGA-3/DHA/EPA/FISH OIL 1,000 MG CAPSULE PO SCH (08:06)
[2018-12-28] MEDS: BuPROPion HCL XL 150 MG ER TABLET PO SCH (08:07)
[2018-12-28] MEDS: BENZTROPINE MESYLATE 2 MG TABLET PO SCH ×2 (08:07→16:42)
[2018-12-28] MEDS ORDERED: TUBERCULIN, PURIFIED PROTEIN DERIVATIVE 5 TU/0.1 ML SYRINGE ID ONE (09:30)
[2018-12-28 13:49] VITALS: BP 128/82
[2018-12-28] MEDS: ACETAMINOPHEN 325 MG TABLET PO PRN ×2 (13:49→21:58)
[2018-12-28] MEDS: DIVALPROEX SODIUM 500 MG DR TABLET PO SCH (20:34)
[2018-12-28] MEDS: SIMVASTATIN 10 MG TABLET PO SCH (20:34)
[2018-12-28] MEDS: OLANZapine 10 MG TABLET PO SCH (20:34)
[2018-12-29 00:37] VITALS: BP 136/86
[2018-12-29] MEDS: LEVOTHYROXINE SODIUM 75 MCG TABLET PO SCH (06:02)
[2018-12-29] MEDS: OMEGA-3/DHA/EPA/FISH OIL 1,000 MG CAPSULE PO SCH (08:11)
[2018-12-29] MEDS: BENZTROPINE MESYLATE 2 MG TABLET PO SCH ×2 (08:11→16:29)
[2018-12-29] MEDS: OLANZapine 5 MG TABLET PO SCH (08:11)
[2018-12-29] MEDS: BuPROPion HCL XL 150 MG ER TABLET PO SCH (08:11)
[2018-12-29 08:14] VITALS: BP 128/82
[2018-12-29] MEDS: ACETAMINOPHEN 325 MG TABLET PO PRN ×2 (08:14→17:37)
[2018-12-29] MEDS: NICOTINE 14 MG/24 HOUR PATCH TD PRN (08:14)
[2018-12-29 08:26] VITALS: BP 128/82
[2018-12-29 16:40] VITALS: BP 132/87
[2018-12-29] MEDS: SIMVASTATIN 10 MG TABLET PO SCH (20:16)
[2018-12-29] MEDS: OLANZapine 10 MG TABLET PO SCH (20:16)
[2018-12-29] MEDS: DIVALPROEX SODIUM 500 MG DR TABLET PO SCH (20:16)
[2018-12-30 02:45] VITALS: BP 143/82
[2018-12-30] MEDS: ACETAMINOPHEN 325 MG TABLET PO PRN ×3 (02:49→17:18)
[2018-12-30] MEDS: LEVOTHYROXINE SODIUM 75 MCG TABLET PO SCH (05:47)
[2018-12-30 08:12] VITALS: BP 141/84
[2018-12-30] MEDS: NICOTINE 14 MG/24 HOUR PATCH TD PRN (08:20)
[2018-12-30] MEDS: OMEGA-3/DHA/EPA/FISH OIL 1,000 MG CAPSULE PO SCH (08:20)
[2018-12-30] MEDS: BENZTROPINE MESYLATE 2 MG TABLET PO SCH ×2 (08:20→16:34)
[2018-12-30] MEDS: BuPROPion HCL XL 150 MG ER TABLET PO SCH (08:21)
[2018-12-30] MEDS: OLANZapine 5 MG TABLET PO SCH (08:25)
[2018-12-30] MEDS: MAG HYDROX/AL HYDROX/SIMETH ES 30 ML SUSPENSION UDCUP PO PRN (16:33)
[2018-12-30 17:30] VITALS: BP 141/97
[2018-12-30] MEDS: DIVALPROEX SODIUM 500 MG DR TABLET PO SCH (20:08)
[2018-12-30] MEDS: SIMVASTATIN 10 MG TABLET PO SCH (20:08)
[2018-12-30] MEDS: OLANZapine 10 MG TABLET PO SCH (20:08)
[2018-12-30 20:34] VITALS: BP 140/74
[2018-12-30] MEDS: GuaiFENesin/D-METHORPHAN [SUGAR-FREE] 200-20MG/10 ML SYRUP UDCUP PO PRN (21:08)
[2018-12-31 00:15] VITALS: BP 138/82
[2018-12-31] MEDS: IBUPROFEN 400 MG TABLET PO PRN (00:20)
[2018-12-31] MEDS: LEVOTHYROXINE SODIUM 75 MCG TABLET PO SCH (06:56)
[2018-12-31] MEDS: BENZTROPINE MESYLATE 2 MG TABLET PO SCH ×2 (08:10→16:33)
[2018-12-31] MEDS: OMEGA-3/DHA/EPA/FISH OIL 1,000 MG CAPSULE PO SCH (08:10)
[2018-12-31] MEDS: BuPROPion HCL XL 150 MG ER TABLET PO SCH (08:10)
[2018-12-31 08:14] VITALS: BP 136/87
[2018-12-31] MEDS: NICOTINE 14 MG/24 HOUR PATCH TD PRN (08:14)
[2018-12-31] MEDS: OLANZapine 5 MG TABLET PO SCH (08:14)
[2018-12-31] MEDS: ACETAMINOPHEN 325 MG TABLET PO PRN ×2 (09:06→19:08)
[2018-12-31] MEDS: GuaiFENesin/D-METHORPHAN [SUGAR-FREE] 200-20MG/10 ML SYRUP UDCUP PO PRN (20:02)
[2018-12-31] MEDS: OLANZapine 10 MG TABLET PO SCH (20:31)
[2018-12-31] MEDS: SIMVASTATIN 10 MG TABLET PO SCH (20:32)
[2018-12-31] MEDS: DIVALPROEX SODIUM 500 MG DR TABLET PO SCH (20:32)
[2019-01-01 00:21] VITALS: BP 130/84
[2019-01-01] MEDS: LEVOTHYROXINE SODIUM 75 MCG TABLET PO SCH (06:42)
[2019-01-01] MEDS: BENZTROPINE MESYLATE 2 MG TABLET PO SCH ×2 (08:45→16:30)
[2019-01-01] MEDS: OLANZapine 5 MG TABLET PO SCH (08:45)
[2019-01-01] MEDS: OMEGA-3/DHA/EPA/FISH OIL 1,000 MG CAPSULE PO SCH (08:45)
[2019-01-01] MEDS: BuPROPion HCL XL 150 MG ER TABLET PO SCH (08:45)
[2019-01-01] MEDS: NICOTINE 14 MG/24 HOUR PATCH TD PRN (08:46)
[2019-01-01 10:58] VITALS: BP 128/76
[2019-01-01] MEDS: ACETAMINOPHEN 325 MG TABLET PO PRN ×2 (10:58→21:56)
[2019-01-01 16:30] VITALS: BP 146/76
[2019-01-01] MEDS: DIVALPROEX SODIUM 500 MG DR TABLET PO SCH (20:40)
[2019-01-01] MEDS: SIMVASTATIN 10 MG TABLET PO SCH (20:40)
[2019-01-01] MEDS: OLANZapine 10 MG TABLET PO SCH (20:40)
[2019-01-02 00:20] VITALS: BP 150/84
[2019-01-02] MEDS: LEVOTHYROXINE SODIUM 75 MCG TABLET PO SCH (06:52)
[2019-01-02 08:23] VITALS: BP 135/63
[2019-01-02] MEDS: BuPROPion HCL XL 150 MG ER TABLET PO SCH (09:42)
[2019-01-02] MEDS: BENZTROPINE MESYLATE 2 MG TABLET PO SCH ×2 (09:42→16:40)
[2019-01-02] MEDS: OMEGA-3/DHA/EPA/FISH OIL 1,000 MG CAPSULE PO SCH (09:42)
[2019-01-02] MEDS: OLANZapine 5 MG TABLET PO SCH (09:44)
[2019-01-02 09:51] VITALS: BP 148/76
[2019-01-02] MEDS: ACETAMINOPHEN 325 MG TABLET PO PRN (09:52)
[2019-01-02] MEDS: HydrOXYzine PAMOATE 25 MG CAPSULE PO PRN (12:23)
[2019-01-02] MEDS: GuaiFENesin/D-METHORPHAN [SUGAR-FREE] 200-20MG/10 ML SYRUP UDCUP PO PRN (14:36)
[2019-01-02 16:00] VITALS: BP 147/65
[2019-01-02] MEDS: OLANZapine 10 MG TABLET PO SCH (20:56)
[2019-01-02] MEDS: SIMVASTATIN 10 MG TABLET PO SCH (20:56)
[2019-01-02] MEDS: DIVALPROEX SODIUM 500 MG DR TABLET PO SCH (20:56)
[2019-01-03 01:33] VITALS: BP 119/79
[2019-01-03] MEDS: LEVOTHYROXINE SODIUM 75 MCG TABLET PO SCH (07:02)
[2019-01-03] MEDS: OLANZapine 5 MG TABLET PO SCH (08:26)
[2019-01-03] MEDS: BENZTROPINE MESYLATE 2 MG TABLET PO SCH ×2 (08:26→16:49)
[2019-01-03] MEDS: OMEGA-3/DHA/EPA/FISH OIL 1,000 MG CAPSULE PO SCH (08:26)
[2019-01-03] MEDS: BuPROPion HCL XL 150 MG ER TABLET PO SCH (08:26)
[2019-01-03] MEDS: NICOTINE 14 MG/24 HOUR PATCH TD PRN (08:27)
[2019-01-03] MEDS: ACETAMINOPHEN 325 MG TABLET PO PRN (08:30)
[2019-01-03 08:45] VITALS: BP 147/83
[2019-01-03 18:53] VITALS: BP 117/64
[2019-01-03] MEDS: OLANZapine 10 MG TABLET PO SCH (20:41)
[2019-01-03] MEDS: SIMVASTATIN 10 MG TABLET PO SCH (20:41)
[2019-01-03] MEDS: DIVALPROEX SODIUM 500 MG DR TABLET PO SCH (20:41)
[2019-01-04 02:27] VITALS: BP 129/77
[2019-01-04] MEDS: LEVOTHYROXINE SODIUM 75 MCG TABLET PO SCH (06:40)
[2019-01-04] MEDS: OLANZapine 5 MG TABLET PO SCH (08:40)
[2019-01-04] MEDS: BuPROPion HCL XL 150 MG ER TABLET PO SCH (08:40)
[2019-01-04] MEDS: BENZTROPINE MESYLATE 2 MG TABLET PO SCH ×2 (08:40→16:32)
[2019-01-04] MEDS: OMEGA-3/DHA/EPA/FISH OIL 1,000 MG CAPSULE PO SCH (08:40)
[2019-01-04] MEDS: ACETAMINOPHEN 325 MG TABLET PO PRN (08:45)
[2019-01-04] MEDS: NICOTINE 14 MG/24 HOUR PATCH TD PRN (08:45)
[2019-01-04 08:48] VITALS: BP 136/64
[2019-01-04 16:09] VITALS: BP 137/80
[2019-01-04] MEDS: OLANZapine 10 MG TABLET PO SCH (20:32)
[2019-01-04] MEDS: SIMVASTATIN 10 MG TABLET PO SCH (20:32)
[2019-01-04] MEDS: DIVALPROEX SODIUM 500 MG DR TABLET PO SCH (20:32)
[2019-01-05 05:39] VITALS: BP 153/69
[2019-01-05] MEDS: LEVOTHYROXINE SODIUM 75 MCG TABLET PO SCH (06:30)
[2019-01-05] MEDS: ACETAMINOPHEN 325 MG TABLET PO PRN ×2 (08:12→18:57)
[2019-01-05] MEDS: BuPROPion HCL XL 150 MG ER TABLET PO SCH (08:12)
[2019-01-05] MEDS: BENZTROPINE MESYLATE 2 MG TABLET PO SCH ×2 (08:12→16:37)
[2019-01-05] MEDS: OLANZapine 5 MG TABLET PO SCH (08:12)
[2019-01-05] MEDS: NICOTINE 14 MG/24 HOUR PATCH TD PRN (08:12)
[2019-01-05] MEDS: OMEGA-3/DHA/EPA/FISH OIL 1,000 MG CAPSULE PO SCH (08:15)
[2019-01-05 11:21] VITALS: BP 141/71
[2019-01-05 16:21] VITALS: BP 128/79
[2019-01-05] MEDS: DIVALPROEX SODIUM 500 MG DR TABLET PO SCH (20:36)
[2019-01-05] MEDS: OLANZapine 10 MG TABLET PO SCH (20:36)
[2019-01-05] MEDS: SIMVASTATIN 10 MG TABLET PO SCH (20:36)
[2019-01-05] MEDS: HydrOXYzine PAMOATE 25 MG CAPSULE PO PRN (22:51)
[2019-01-05] MEDS: MAG HYDROX/AL HYDROX/SIMETH ES 30 ML SUSPENSION UDCUP PO PRN (23:52)
[2019-01-06 00:12] VITALS: BP 137/79
[2019-01-06] MEDS: LEVOTHYROXINE SODIUM 75 MCG TABLET PO SCH (06:46)
[2019-01-06] MEDS: BuPROPion HCL XL 150 MG ER TABLET PO SCH (08:17)
[2019-01-06] MEDS: BENZTROPINE MESYLATE 2 MG TABLET PO SCH ×2 (08:17→16:12)
[2019-01-06] MEDS: ACETAMINOPHEN 325 MG TABLET PO PRN ×2 (08:17→17:24)
[2019-01-06] MEDS: OMEGA-3/DHA/EPA/FISH OIL 1,000 MG CAPSULE PO SCH (08:17)
[2019-01-06] MEDS: OLANZapine 5 MG TABLET PO SCH (08:17)
[2019-01-06] MEDS: NICOTINE 14 MG/24 HOUR PATCH TD PRN (08:17)
[2019-01-06 08:27] VITALS: BP 144/92
[2019-01-06 16:11] VITALS: BP 122/92
[2019-01-06] MEDS: DIVALPROEX SODIUM 500 MG DR TABLET PO SCH (20:11)
[2019-01-06] MEDS: SIMVASTATIN 10 MG TABLET PO SCH (20:11)
[2019-01-06] MEDS: OLANZapine 10 MG TABLET PO SCH (20:12)
[2019-01-07] MEDS: LEVOTHYROXINE SODIUM 75 MCG TABLET PO SCH (06:52)
[2019-01-07] MEDS: BENZTROPINE MESYLATE 2 MG TABLET PO SCH ×2 (08:26→16:33)
[2019-01-07] MEDS: OLANZapine 5 MG TABLET PO SCH (08:26)
[2019-01-07] MEDS: OMEGA-3/DHA/EPA/FISH OIL 1,000 MG CAPSULE PO SCH (08:26)
[2019-01-07] MEDS: BuPROPion HCL XL 150 MG ER TABLET PO SCH (08:26)
[2019-01-07 08:27] VITALS: BP 140/98
[2019-01-07] MEDS: NICOTINE 14 MG/24 HOUR PATCH TD PRN (08:57)
[2019-01-07] MEDS: ACETAMINOPHEN 325 MG TABLET PO PRN ×2 (08:57→18:00)
[2019-01-07] MEDS: HydrOXYzine PAMOATE 25 MG CAPSULE PO PRN (16:20)
[2019-01-07 16:36] VITALS: BP 158/95
[2019-01-07] MEDS: DIVALPROEX SODIUM 500 MG DR TABLET PO SCH (20:33)
[2019-01-07] MEDS: SIMVASTATIN 10 MG TABLET PO SCH (20:33)
[2019-01-07] MEDS: OLANZapine 10 MG TABLET PO SCH (20:33)
[2019-01-07 20:39] VITALS: BP 141/84
[2019-01-07] MEDS: IBUPROFEN 400 MG TABLET PO PRN (20:42)
[2019-01-08 06:39] VITALS: BP 136/81
[2019-01-08] MEDS: LEVOTHYROXINE SODIUM 75 MCG TABLET PO SCH (06:48)
[2019-01-08] MEDS: BENZTROPINE MESYLATE 2 MG TABLET PO SCH ×2 (08:04→16:47)
[2019-01-08] MEDS: OMEGA-3/DHA/EPA/FISH OIL 1,000 MG CAPSULE PO SCH (08:04)
[2019-01-08] MEDS: NICOTINE 14 MG/24 HOUR PATCH TD PRN (08:05)
[2019-01-08] MEDS: OLANZapine 5 MG TABLET PO SCH (08:05)
[2019-01-08] MEDS: BuPROPion HCL XL 150 MG ER TABLET PO SCH (08:05)
[2019-01-08] MEDS: HydrOXYzine PAMOATE 25 MG CAPSULE PO PRN (08:05)
[2019-01-08 08:26] VITALS: BP 141/84
[2019-01-08] MEDS ORDERED: ARIPiprazole 10 MG TABLET PO ONE (09:15)
[2019-01-08] MEDS ORDERED: ARIPiprazole LAUROXIL,SUBMICR. ER SUSPENSION 675 MG/2.4 ML SYRINGE IM ONE (10:00)
[2019-01-08] MEDS ORDERED: ARIPiprazole LAUROXIL ER SUSPENSION 882 MG/3.2 ML SYRINGE IM ONE (10:00)
[2019-01-08 12:34] VITALS: BP 132/82
[2019-01-08] MEDS: ACETAMINOPHEN 325 MG TABLET PO PRN (12:34)
[2019-01-08 16:47] VITALS: BP 135/83
[2019-01-08] MEDS: IBUPROFEN 400 MG TABLET PO PRN (16:47)
[2019-01-08] MEDS: OLANZapine 10 MG TABLET PO SCH (20:16)
[2019-01-08] MEDS: DIVALPROEX SODIUM 500 MG DR TABLET PO SCH (20:16)
[2019-01-08] MEDS: SIMVASTATIN 10 MG TABLET PO SCH (20:31)
[2019-01-09 00:07] VITALS: BP 126/70
[2019-01-09] MEDS: ACETAMINOPHEN 325 MG TABLET PO PRN ×3 (00:07→18:13)
[2019-01-09] MEDS: LEVOTHYROXINE SODIUM 75 MCG TABLET PO SCH (06:38)
[2019-01-09] MEDS: BuPROPion HCL XL 150 MG ER TABLET PO SCH (08:02)
[2019-01-09] MEDS: BENZTROPINE MESYLATE 2 MG TABLET PO SCH ×2 (08:02→17:13)
[2019-01-09] MEDS: OMEGA-3/DHA/EPA/FISH OIL 1,000 MG CAPSULE PO SCH (08:02)
[2019-01-09] MEDS: NICOTINE 14 MG/24 HOUR PATCH TD PRN (08:03)
[2019-01-09 08:30] VITALS: BP 143/96
[2019-01-09] MEDS: MAG HYDROX/AL HYDROX/SIMETH ES 30 ML SUSPENSION UDCUP PO PRN ×2 (08:32→18:12)
[2019-01-09 16:11] VITALS: BP 138/79
[2019-01-09] MEDS: DIVALPROEX SODIUM 500 MG DR TABLET PO SCH (20:29)
[2019-01-09] MEDS: OLANZapine 10 MG TABLET PO SCH (20:29)
[2019-01-09] MEDS: SIMVASTATIN 10 MG TABLET PO SCH (20:29)
[2019-01-09] MEDS: GuaiFENesin/D-METHORPHAN [SUGAR-FREE] 200-20MG/10 ML SYRUP UDCUP PO PRN (21:35)
[2019-01-10 00:40] VITALS: BP 154/92
[2019-01-10] MEDS: LEVOTHYROXINE SODIUM 75 MCG TABLET PO SCH (06:40)
[2019-01-10] MEDS: BuPROPion HCL XL 150 MG ER TABLET PO SCH (08:10)
[2019-01-10] MEDS: BENZTROPINE MESYLATE 2 MG TABLET PO SCH ×2 (08:10→16:41)
[2019-01-10] MEDS: OMEGA-3/DHA/EPA/FISH OIL 1,000 MG CAPSULE PO SCH (08:10)
[2019-01-10 08:12] VITALS: BP 144/71
[2019-01-10] MEDS: ACETAMINOPHEN 325 MG TABLET PO PRN ×2 (08:12→18:21)
[2019-01-10] MEDS: NICOTINE 14 MG/24 HOUR PATCH TD PRN (08:12)
[2019-01-10 08:28] VITALS: BP 144/71
[2019-01-10] MEDS: MAG HYDROX/AL HYDROX/SIMETH ES 30 ML SUSPENSION UDCUP PO PRN (12:33)
[2019-01-10] MEDS: IBUPROFEN 400 MG TABLET PO PRN (14:45)
[2019-01-10 16:00] VITALS: BP 122/74
[2019-01-10] MEDS: DIVALPROEX SODIUM 500 MG DR TABLET PO SCH (20:33)
[2019-01-10] MEDS: SIMVASTATIN 10 MG TABLET PO SCH (20:33)
[2019-01-10] MEDS: OLANZapine 10 MG TABLET PO SCH (20:33)
[2019-01-11] MEDS: LEVOTHYROXINE SODIUM 75 MCG TABLET PO SCH (06:52)
[2019-01-11] MEDS: OMEGA-3/DHA/EPA/FISH OIL 1,000 MG CAPSULE PO SCH (08:06)
[2019-01-11] MEDS: ACETAMINOPHEN 325 MG TABLET PO PRN ×2 (08:06→17:10)
[2019-01-11] MEDS: BuPROPion HCL XL 150 MG ER TABLET PO SCH (08:06)
[2019-01-11] MEDS: BENZTROPINE MESYLATE 2 MG TABLET PO SCH ×2 (08:06→16:30)
[2019-01-11] MEDS: NICOTINE 14 MG/24 HOUR PATCH TD PRN (08:07)
[2019-01-11 08:37] VITALS: BP 125/78
[2019-01-11 16:23] VITALS: BP 158/90
[2019-01-11 18:19] VITALS: BP 140/81
[2019-01-11] MEDS: OLANZapine 10 MG TABLET PO SCH (20:37)
[2019-01-11] MEDS: DIVALPROEX SODIUM 500 MG DR TABLET PO SCH (20:37)
[2019-01-11] MEDS: SIMVASTATIN 10 MG TABLET PO SCH (20:37)
[2019-01-11] MEDS: MAG HYDROX/AL HYDROX/SIMETH ES 30 ML SUSPENSION UDCUP PO PRN (22:51)
[2019-01-12 05:34] VITALS: BP 140/85
[2019-01-12] MEDS: LEVOTHYROXINE SODIUM 75 MCG TABLET PO SCH (06:58)
[2019-01-12 08:04] VITALS: BP 132/75
[2019-01-12] MEDS: BENZTROPINE MESYLATE 2 MG TABLET PO SCH ×2 (08:04→16:26)
[2019-01-12] MEDS: NICOTINE 14 MG/24 HOUR PATCH TD PRN (08:04)
[2019-01-12] MEDS: OMEGA-3/DHA/EPA/FISH OIL 1,000 MG CAPSULE PO SCH (08:04)
[2019-01-12] MEDS: BuPROPion HCL XL 150 MG ER TABLET PO SCH (08:04)
[2019-01-12] MEDS: ACETAMINOPHEN 325 MG TABLET PO PRN (08:04)
[2019-01-12 08:25] VITALS: BP 132/75
[2019-01-12] MEDS: MAG HYDROX/AL HYDROX/SIMETH ES 30 ML SUSPENSION UDCUP PO PRN (14:47)
[2019-01-12] MEDS: OLANZapine 10 MG TABLET PO SCH (20:06)
[2019-01-12] MEDS: DIVALPROEX SODIUM 500 MG DR TABLET PO SCH (20:06)
[2019-01-12] MEDS: SIMVASTATIN 10 MG TABLET PO SCH (20:06)
[2019-01-12 20:28] VITALS: BP 131/74
[2019-01-12] MEDS: HydrOXYzine PAMOATE 25 MG CAPSULE PO PRN (22:17)
[2019-01-13 05:27] VITALS: BP 136/79
[2019-01-13] MEDS: LEVOTHYROXINE SODIUM 75 MCG TABLET PO SCH (06:36)
[2019-01-13] MEDS: BENZTROPINE MESYLATE 2 MG TABLET PO SCH ×2 (08:03→16:41)
[2019-01-13] MEDS: BuPROPion HCL XL 150 MG ER TABLET PO SCH (08:03)
[2019-01-13] MEDS: ACETAMINOPHEN 325 MG TABLET PO PRN (08:03)
[2019-01-13] MEDS: OMEGA-3/DHA/EPA/FISH OIL 1,000 MG CAPSULE PO SCH (08:03)
[2019-01-13] MEDS: NICOTINE 14 MG/24 HOUR PATCH TD PRN (08:04)
[2019-01-13 08:47] VITALS: BP 140/75
[2019-01-13] MEDS: GuaiFENesin/D-METHORPHAN [SUGAR-FREE] 200-20MG/10 ML SYRUP UDCUP PO PRN (10:43)
[2019-01-13 16:07] VITALS: BP 140/83
[2019-01-13] MEDS: IBUPROFEN 400 MG TABLET PO PRN (17:08)
[2019-01-13 18:25] VITALS: BP 131/82
[2019-01-13] MEDS: HydrOXYzine PAMOATE 25 MG CAPSULE PO PRN (19:41)
[2019-01-13] MEDS: OLANZapine 10 MG TABLET PO SCH (20:32)
[2019-01-13] MEDS: DIVALPROEX SODIUM 500 MG DR TABLET PO SCH (20:32)
[2019-01-13] MEDS: SIMVASTATIN 10 MG TABLET PO SCH (20:32)
[2019-01-14 00:13] VITALS: BP 115/60
[2019-01-14] MEDS: LEVOTHYROXINE SODIUM 75 MCG TABLET PO SCH (06:45)
[2019-01-14] MEDS: BuPROPion HCL XL 150 MG ER TABLET PO SCH (08:02)
[2019-01-14] MEDS: OMEGA-3/DHA/EPA/FISH OIL 1,000 MG CAPSULE PO SCH (08:03)
[2019-01-14] MEDS: NICOTINE 14 MG/24 HOUR PATCH TD PRN (08:03)
[2019-01-14] MEDS: BENZTROPINE MESYLATE 2 MG TABLET PO SCH ×2 (08:03→16:34)
[2019-01-14 08:19] VITALS: BP 133/73
[2019-01-14] MEDS: MAG HYDROX/AL HYDROX/SIMETH ES 30 ML SUSPENSION UDCUP PO PRN (09:50)
[2019-01-14 16:00] VITALS: BP 138/81
[2019-01-14] MEDS: ACETAMINOPHEN 325 MG TABLET PO PRN (19:37)
[2019-01-14] MEDS: SIMVASTATIN 10 MG TABLET PO SCH (20:34)
[2019-01-14] MEDS: DIVALPROEX SODIUM 500 MG DR TABLET PO SCH (20:34)
[2019-01-14] MEDS: OLANZapine 10 MG TABLET PO SCH (20:34)
[2019-01-15] VITALS: BP 130/67
[2019-01-15] MEDS: LEVOTHYROXINE SODIUM 75 MCG TABLET PO SCH (06:38)
[2019-01-15] MEDS: OMEGA-3/DHA/EPA/FISH OIL 1,000 MG CAPSULE PO SCH (08:06)
[2019-01-15] MEDS: BENZTROPINE MESYLATE 2 MG TABLET PO SCH ×2 (08:06→16:42)
[2019-01-15] MEDS: BuPROPion HCL XL 150 MG ER TABLET PO SCH (08:06)
[2019-01-15 08:07] VITALS: BP 128/68
[2019-01-15] MEDS: NICOTINE 14 MG/24 HOUR PATCH TD PRN (08:07)
[2019-01-15] MEDS: ACETAMINOPHEN 325 MG TABLET PO PRN (08:07)
[2019-01-15] MEDS: IBUPROFEN 400 MG TABLET PO PRN (11:54)
[2019-01-15] MEDS: GuaiFENesin/D-METHORPHAN [SUGAR-FREE] 200-20MG/10 ML SYRUP UDCUP PO PRN (13:59)
[2019-01-15 16:16] VITALS: BP 149/84
[2019-01-15] MEDS: DIVALPROEX SODIUM 500 MG DR TABLET PO SCH (20:32)
[2019-01-15] MEDS: OLANZapine 10 MG TABLET PO SCH (20:32)
[2019-01-15] MEDS: SIMVASTATIN 10 MG TABLET PO SCH (20:32)
[2019-01-16 00:11] VITALS: BP 131/68
[2019-01-16] MEDS: LEVOTHYROXINE SODIUM 75 MCG TABLET PO SCH (06:35)
[2019-01-16] MEDS: BENZTROPINE MESYLATE 2 MG TABLET PO SCH ×2 (08:11→16:31)
[2019-01-16] MEDS: BuPROPion HCL XL 150 MG ER TABLET PO SCH (08:11)
[2019-01-16] MEDS: NICOTINE 14 MG/24 HOUR PATCH TD PRN (08:12)
[2019-01-16 08:18] VITALS: BP 140/75
[2019-01-16] MEDS: OMEGA-3/DHA/EPA/FISH OIL 1,000 MG CAPSULE PO SCH (08:53)
[2019-01-16] MEDS: ACETAMINOPHEN 325 MG TABLET PO PRN ×2 (09:55→18:28)
[2019-01-16 16:19] VITALS: BP 136/80
[2019-01-16 18:28] VITALS: BP 132/78
[2019-01-16] MEDS: SIMVASTATIN 10 MG TABLET PO SCH (20:16)
[2019-01-16] MEDS: OLANZapine 10 MG TABLET PO SCH (20:16)
[2019-01-16] MEDS: DIVALPROEX SODIUM 500 MG DR TABLET PO SCH (20:17)
[2019-01-16] MEDS: GuaiFENesin/D-METHORPHAN [SUGAR-FREE] 200-20MG/10 ML SYRUP UDCUP PO PRN (22:50)
[2019-01-17 01:06] VITALS: BP 121/79
[2019-01-17] MEDS: LEVOTHYROXINE SODIUM 75 MCG TABLET PO SCH (06:52)
[2019-01-17 08:24] VITALS: BP 128/84
[2019-01-17] MEDS: BuPROPion HCL XL 150 MG ER TABLET PO SCH (08:58)
[2019-01-17] MEDS: BENZTROPINE MESYLATE 2 MG TABLET PO SCH ×2 (08:58→16:32)
[2019-01-17] MEDS: NICOTINE 14 MG/24 HOUR PATCH TD PRN (08:58)
[2019-01-17] MEDS: OMEGA-3/DHA/EPA/FISH OIL 1,000 MG CAPSULE PO SCH (08:58)
[2019-01-17] MEDS: ACETAMINOPHEN 325 MG TABLET PO PRN ×2 (09:09→18:02)
[2019-01-17 14:50] VITALS: BP 124/78
[2019-01-17] MEDS: IBUPROFEN 400 MG TABLET PO PRN (14:50)
[2019-01-17 16:19] VITALS: BP 136/86
[2019-01-17] MEDS: SIMVASTATIN 10 MG TABLET PO SCH (20:39)
[2019-01-17] MEDS: OLANZapine 10 MG TABLET PO SCH (20:39)
[2019-01-17] MEDS: DIVALPROEX SODIUM 500 MG DR TABLET PO SCH (20:40)
[2019-01-18 06:55] VITALS: BP 128/74
[2019-01-18] MEDS: LEVOTHYROXINE SODIUM 75 MCG TABLET PO SCH (07:03)
[2019-01-18] MEDS: BENZTROPINE MESYLATE 2 MG TABLET PO SCH ×2 (08:09→16:38)
[2019-01-18] MEDS: ACETAMINOPHEN 325 MG TABLET PO PRN ×2 (08:09→16:39)
[2019-01-18] MEDS: BuPROPion HCL XL 150 MG ER TABLET PO SCH (08:09)
[2019-01-18] MEDS: OMEGA-3/DHA/EPA/FISH OIL 1,000 MG CAPSULE PO SCH (08:09)
[2019-01-18] MEDS: NICOTINE 14 MG/24 HOUR PATCH TD PRN (08:10)
[2019-01-18] MEDS: GuaiFENesin/D-METHORPHAN [SUGAR-FREE] 200-20MG/10 ML SYRUP UDCUP PO PRN (09:38)
[2019-01-18] MEDS: MAG HYDROX/AL HYDROX/SIMETH ES 30 ML SUSPENSION UDCUP PO PRN (10:49)
[2019-01-18 16:06] VITALS: BP 138/79
[2019-01-18] MEDS: OLANZapine 10 MG TABLET PO SCH (20:11)
[2019-01-18] MEDS: DIVALPROEX SODIUM 500 MG DR TABLET PO SCH (20:11)
[2019-01-18] MEDS: SIMVASTATIN 10 MG TABLET PO SCH (20:11)
[2019-01-19] MEDS: LEVOTHYROXINE SODIUM 75 MCG TABLET PO SCH (06:53)
[2019-01-19 08:00] VITALS: BP 125/75
[2019-01-19] MEDS: BuPROPion HCL XL 150 MG ER TABLET PO SCH (08:59)
[2019-01-19] MEDS: NICOTINE 14 MG/24 HOUR PATCH TD PRN (08:59)
[2019-01-19] MEDS: OMEGA-3/DHA/EPA/FISH OIL 1,000 MG CAPSULE PO SCH (08:59)
[2019-01-19] MEDS: BENZTROPINE MESYLATE 2 MG TABLET PO SCH ×2 (08:59→16:33)
[2019-01-19] MEDS: ACETAMINOPHEN 325 MG TABLET PO PRN ×2 (09:25→18:18)
[2019-01-19 16:03] VITALS: BP 126/72
[2019-01-19] MEDS: OLANZapine 10 MG TABLET PO SCH (20:52)
[2019-01-19] MEDS: SIMVASTATIN 10 MG TABLET PO SCH (20:52)
[2019-01-19] MEDS: DIVALPROEX SODIUM 500 MG DR TABLET PO SCH (20:52)
[2019-01-20 00:29] VITALS: BP 125/67
[2019-01-20] MEDS: LEVOTHYROXINE SODIUM 75 MCG TABLET PO SCH (06:40)
[2019-01-20 08:05] VITALS: BP 113/84
[2019-01-20] MEDS: OMEGA-3/DHA/EPA/FISH OIL 1,000 MG CAPSULE PO SCH (08:05)
[2019-01-20] MEDS: NICOTINE 14 MG/24 HOUR PATCH TD PRN (08:05)
[2019-01-20] MEDS: BENZTROPINE MESYLATE 2 MG TABLET PO SCH ×2 (08:05→16:44)
[2019-01-20] MEDS: ACETAMINOPHEN 325 MG TABLET PO PRN ×2 (08:05→17:51)
[2019-01-20] MEDS: BuPROPion HCL XL 150 MG ER TABLET PO SCH (08:05)
[2019-01-20 08:10] VITALS: BP 113/84
[2019-01-20] MEDS: HydrOXYzine PAMOATE 25 MG CAPSULE PO PRN (16:44)
[2019-01-20 17:52] VITALS: BP 117/85
[2019-01-20] MEDS: SIMVASTATIN 10 MG TABLET PO SCH (20:45)
[2019-01-20] MEDS: OLANZapine 10 MG TABLET PO SCH (20:45)
[2019-01-20] MEDS: DIVALPROEX SODIUM 500 MG DR TABLET PO SCH (20:45)
[2019-01-21 05:09] VITALS: BP 111/89
[2019-01-21] MEDS: LEVOTHYROXINE SODIUM 75 MCG TABLET PO SCH (06:49)
[2019-01-21 08:23] VITALS: BP 109/61
[2019-01-21] MEDS: OMEGA-3/DHA/EPA/FISH OIL 1,000 MG CAPSULE PO SCH (08:43)
[2019-01-21] MEDS: BuPROPion HCL XL 150 MG ER TABLET PO SCH (08:43)
[2019-01-21] MEDS: BENZTROPINE MESYLATE 2 MG TABLET PO SCH ×2 (08:43→16:16)
[2019-01-21] MEDS: ACETAMINOPHEN 325 MG TABLET PO PRN ×2 (08:45→19:01)
[2019-01-21] MEDS: NICOTINE 14 MG/24 HOUR PATCH TD PRN (08:45)
[2019-01-21] MEDS: GuaiFENesin/D-METHORPHAN [SUGAR-FREE] 200-20MG/10 ML SYRUP UDCUP PO PRN (09:36)
[2019-01-21] MEDS: MAG HYDROX/AL HYDROX/SIMETH ES 30 ML SUSPENSION UDCUP PO PRN (10:56)
[2019-01-21] MEDS: OLANZapine 10 MG TABLET PO SCH (20:16)
[2019-01-21] MEDS: DIVALPROEX SODIUM 500 MG DR TABLET PO SCH (20:16)
[2019-01-21] MEDS: SIMVASTATIN 10 MG TABLET PO SCH (20:16)
[2019-01-22 00:25] VITALS: BP 138/86
[2019-01-22] MEDS: IBUPROFEN 400 MG TABLET PO PRN (00:52)
[2019-01-22] MEDS: LEVOTHYROXINE SODIUM 75 MCG TABLET PO SCH (06:56)
[2019-01-22 09:14] VITALS: BP 115/71
[2019-01-22] MEDS: BuPROPion HCL XL 150 MG ER TABLET PO SCH (09:20)
[2019-01-22] MEDS: BENZTROPINE MESYLATE 2 MG TABLET PO SCH ×2 (09:20→16:45)
[2019-01-22] MEDS: OMEGA-3/DHA/EPA/FISH OIL 1,000 MG CAPSULE PO SCH (09:20)
[2019-01-22] MEDS: NICOTINE 14 MG/24 HOUR PATCH TD PRN (09:20)
[2019-01-22] MEDS: ACETAMINOPHEN 325 MG TABLET PO PRN ×2 (09:27→18:10)
[2019-01-22 17:00] VITALS: BP 144/93
[2019-01-22] MEDS: SIMVASTATIN 10 MG TABLET PO SCH (20:10)
[2019-01-22] MEDS: OLANZapine 10 MG TABLET PO SCH (20:11)
[2019-01-22] MEDS: DIVALPROEX SODIUM 500 MG DR TABLET PO SCH (20:11)
[2019-01-23 05:52] VITALS: BP 103/67
[2019-01-23] MEDS: LEVOTHYROXINE SODIUM 75 MCG TABLET PO SCH (06:36)
[2019-01-23 08:17] VITALS: BP 140/86
[2019-01-23] MEDS: BuPROPion HCL XL 150 MG ER TABLET PO SCH (08:58)
[2019-01-23] MEDS: OMEGA-3/DHA/EPA/FISH OIL 1,000 MG CAPSULE PO SCH (08:58)
[2019-01-23] MEDS: BENZTROPINE MESYLATE 2 MG TABLET PO SCH ×2 (08:58→16:43)
[2019-01-23 12:14] VITALS: BP 140/76
[2019-01-23] MEDS: ACETAMINOPHEN 325 MG TABLET PO PRN ×2 (12:14→23:42)
[2019-01-23 16:27] VITALS: BP 137/63
[2019-01-23] MEDS: DIVALPROEX SODIUM 500 MG DR TABLET PO SCH (20:34)
[2019-01-23] MEDS: OLANZapine 10 MG TABLET PO SCH (20:34)
[2019-01-23] MEDS: SIMVASTATIN 10 MG TABLET PO SCH (20:34)
[2019-01-24 00:03] VITALS: BP 133/86
[2019-01-24] MEDS: LEVOTHYROXINE SODIUM 75 MCG TABLET PO SCH (06:03)
[2019-01-24] MEDS: OMEGA-3/DHA/EPA/FISH OIL 1,000 MG CAPSULE PO SCH (09:08)
[2019-01-24] MEDS: BENZTROPINE MESYLATE 2 MG TABLET PO SCH ×2 (09:08→16:43)
[2019-01-24] MEDS: NICOTINE 14 MG/24 HOUR PATCH TD PRN (09:08)
[2019-01-24] MEDS: BuPROPion HCL XL 150 MG ER TABLET PO SCH (09:08)
[2019-01-24] MEDS: ACETAMINOPHEN 325 MG TABLET PO PRN ×2 (09:17→17:39)
[2019-01-24 09:54] VITALS: BP 135/77
[2019-01-24 17:39] VITALS: BP 137/82
[2019-01-24] MEDS: SIMVASTATIN 10 MG TABLET PO SCH (20:39)
[2019-01-24] MEDS: OLANZapine 10 MG TABLET PO SCH (20:39)
[2019-01-24] MEDS: DIVALPROEX SODIUM 500 MG DR TABLET PO SCH (20:39)
[2019-01-25 00:18] VITALS: BP 115/86
[2019-01-25] MEDS: LEVOTHYROXINE SODIUM 75 MCG TABLET PO SCH (06:03)
[2019-01-25 08:12] VITALS: BP 123/83
[2019-01-25] MEDS: BENZTROPINE MESYLATE 2 MG TABLET PO SCH ×2 (08:14→16:44)
[2019-01-25] MEDS: OMEGA-3/DHA/EPA/FISH OIL 1,000 MG CAPSULE PO SCH (08:14)
[2019-01-25] MEDS: BuPROPion HCL XL 150 MG ER TABLET PO SCH (08:14)
[2019-01-25] MEDS: NICOTINE 14 MG/24 HOUR PATCH TD SCH (08:16)
[2019-01-25 16:00] VITALS: BP 112/72
[2019-01-25] MEDS: ACETAMINOPHEN 325 MG TABLET PO PRN (18:43)
[2019-01-25] MEDS: HydrOXYzine PAMOATE 25 MG CAPSULE PO PRN (18:43)
[2019-01-25] MEDS: OLANZapine 10 MG TABLET PO SCH (20:35)
[2019-01-25] MEDS: DIVALPROEX SODIUM 500 MG DR TABLET PO SCH (20:35)
[2019-01-25] MEDS: SIMVASTATIN 10 MG TABLET PO SCH (20:35)
[2019-01-26 00:07] VITALS: BP 118/59
[2019-01-26] MEDS: LEVOTHYROXINE SODIUM 75 MCG TABLET PO SCH (06:55)
[2019-01-26 08:04] VITALS: BP 116/75
[2019-01-26] MEDS: OMEGA-3/DHA/EPA/FISH OIL 1,000 MG CAPSULE PO SCH (08:04)
[2019-01-26] MEDS: BuPROPion HCL XL 150 MG ER TABLET PO SCH (08:04)
[2019-01-26] MEDS: BENZTROPINE MESYLATE 2 MG TABLET PO SCH ×2 (08:04→16:07)
[2019-01-26] MEDS: ACETAMINOPHEN 325 MG TABLET PO PRN ×2 (08:04→18:30)
[2019-01-26] MEDS: NICOTINE 14 MG/24 HOUR PATCH TD SCH (08:06)
[2019-01-26 08:13] VITALS: BP 116/75
[2019-01-26 12:22] VITALS: BP 124/76
[2019-01-26] MEDS: IBUPROFEN 400 MG TABLET PO PRN (12:22)
[2019-01-26] MEDS: MAG HYDROX/AL HYDROX/SIMETH ES 30 ML SUSPENSION UDCUP PO PRN (16:08)
[2019-01-26 16:29] VITALS: BP 120/67
[2019-01-26 18:30] VITALS: BP 116/70
[2019-01-26] MEDS: DIVALPROEX SODIUM 500 MG DR TABLET PO SCH (20:12)
[2019-01-26] MEDS: OLANZapine 10 MG TABLET PO SCH (20:12)
[2019-01-26] MEDS: SIMVASTATIN 10 MG TABLET PO SCH (20:13)
[2019-01-26] MEDS: HydrOXYzine PAMOATE 25 MG CAPSULE PO PRN (22:28)
[2019-01-27 05:07] VITALS: BP 118/69
[2019-01-27] MEDS: LEVOTHYROXINE SODIUM 75 MCG TABLET PO SCH (06:36)
[2019-01-27] MEDS: BuPROPion HCL XL 150 MG ER TABLET PO SCH (08:33)
[2019-01-27] MEDS: BENZTROPINE MESYLATE 2 MG TABLET PO SCH ×2 (08:33→16:36)
[2019-01-27] MEDS: OMEGA-3/DHA/EPA/FISH OIL 1,000 MG CAPSULE PO SCH (08:33)
[2019-01-27] MEDS: NICOTINE 14 MG/24 HOUR PATCH TD SCH (08:33)
[2019-01-27 10:00] VITALS: BP 119/69
[2019-01-27 16:10] VITALS: BP 140/76
[2019-01-27] MEDS: OLANZapine 10 MG TABLET PO SCH (20:43)
[2019-01-27] MEDS: DIVALPROEX SODIUM 500 MG DR TABLET PO SCH (20:43)
[2019-01-27] MEDS: SIMVASTATIN 10 MG TABLET PO SCH (20:43)
[2019-01-27] MEDS: ACETAMINOPHEN 325 MG TABLET PO PRN (23:00)
[2019-01-28] VITALS: BP 137/88
[2019-01-28] MEDS: LEVOTHYROXINE SODIUM 75 MCG TABLET PO SCH (06:37)
[2019-01-28 08:20] VITALS: BP 123/63
[2019-01-28] MEDS: BuPROPion HCL XL 150 MG ER TABLET PO SCH (08:48)
[2019-01-28] MEDS: BENZTROPINE MESYLATE 2 MG TABLET PO SCH ×2 (08:48→16:35)
[2019-01-28] MEDS: OMEGA-3/DHA/EPA/FISH OIL 1,000 MG CAPSULE PO SCH (08:48)
[2019-01-28] MEDS: NICOTINE 14 MG/24 HOUR PATCH TD SCH (08:48)
[2019-01-28] MEDS: ACETAMINOPHEN 325 MG TABLET PO PRN ×2 (09:16→17:31)
[2019-01-28] MEDS: MAG HYDROX/AL HYDROX/SIMETH ES 30 ML SUSPENSION UDCUP PO PRN (10:47)
[2019-01-28 16:27] VITALS: BP 145/69
[2019-01-28] MEDS: SIMVASTATIN 10 MG TABLET PO SCH (20:47)
[2019-01-28] MEDS: DIVALPROEX SODIUM 500 MG DR TABLET PO SCH (20:47)
[2019-01-28] MEDS: OLANZapine 10 MG TABLET PO SCH (20:47)
[2019-01-28] MEDS: HydrOXYzine PAMOATE 25 MG CAPSULE PO PRN (21:07)
[2019-01-29 02:53] VITALS: BP 118/76
[2019-01-29] MEDS: LEVOTHYROXINE SODIUM 75 MCG TABLET PO SCH (05:46)
[2019-01-29 08:18] VITALS: BP 109/72
[2019-01-29] MEDS: BENZTROPINE MESYLATE 2 MG TABLET PO SCH ×2 (08:36→16:40)
[2019-01-29] MEDS: OMEGA-3/DHA/EPA/FISH OIL 1,000 MG CAPSULE PO SCH (08:36)
[2019-01-29] MEDS: BuPROPion HCL XL 150 MG ER TABLET PO SCH (08:36)
[2019-01-29] MEDS: NICOTINE 14 MG/24 HOUR PATCH TD SCH (08:37)
[2019-01-29 16:33] VITALS: BP 123/79
[2019-01-29] MEDS: SIMVASTATIN 10 MG TABLET PO SCH (20:51)
[2019-01-29] MEDS: OLANZapine 10 MG TABLET PO SCH (20:51)
[2019-01-29] MEDS: DIVALPROEX SODIUM 500 MG DR TABLET PO SCH (20:52)
[2019-01-30] MEDS: LEVOTHYROXINE SODIUM 75 MCG TABLET PO SCH (06:38)
[2019-01-30 07:00] VITALS: BP 117/67
[2019-01-30] MEDS: BENZTROPINE MESYLATE 2 MG TABLET PO SCH ×2 (08:02→16:34)
[2019-01-30] MEDS: BuPROPion HCL XL 150 MG ER TABLET PO SCH (08:02)
[2019-01-30] MEDS: OMEPRAZOLE 20 MG CAPSULE PO SCH (08:02)
[2019-01-30] MEDS: OMEGA-3/DHA/EPA/FISH OIL 1,000 MG CAPSULE PO SCH (08:02)
[2019-01-30] MEDS: NICOTINE 14 MG/24 HOUR PATCH TD SCH (08:04)
[2019-01-30 08:20] VITALS: BP 115/65
[2019-01-30] MEDS: ACETAMINOPHEN 325 MG TABLET PO PRN ×2 (09:55→22:06)
[2019-01-30 16:44] VITALS: BP 128/81
[2019-01-30] MEDS: OLANZapine 10 MG TABLET PO SCH (20:36)
[2019-01-30] MEDS: SIMVASTATIN 10 MG TABLET PO SCH (20:36)
[2019-01-30] MEDS: DIVALPROEX SODIUM 500 MG DR TABLET PO SCH (20:36)
[2019-01-31 00:10] VITALS: BP 134/81
[2019-01-31 01:20] VITALS: BP 138/78
[2019-01-31] MEDS: HydrOXYzine PAMOATE 25 MG CAPSULE PO PRN (01:22)
[2019-01-31] MEDS: LEVOTHYROXINE SODIUM 75 MCG TABLET PO SCH (06:30)
[2019-01-31] MEDS: BuPROPion HCL XL 150 MG ER TABLET PO SCH (08:22)
[2019-01-31] MEDS: BENZTROPINE MESYLATE 2 MG TABLET PO SCH ×2 (08:22→16:41)
[2019-01-31 08:23] VITALS: BP 122/80
[2019-01-31] MEDS: OMEPRAZOLE 20 MG CAPSULE PO SCH (08:23)
[2019-01-31] MEDS: ACETAMINOPHEN 325 MG TABLET PO PRN (08:23)
[2019-01-31] MEDS: NICOTINE 14 MG/24 HOUR PATCH TD SCH (08:23)
[2019-01-31] MEDS: OMEGA-3/DHA/EPA/FISH OIL 1,000 MG CAPSULE PO SCH (08:23)
[2019-01-31 08:28] VITALS: BP 122/80
[2019-01-31] MEDS: MAG HYDROX/AL HYDROX/SIMETH ES 30 ML SUSPENSION UDCUP PO PRN (11:59)
[2019-01-31 16:41] VITALS: BP 133/93
[2019-01-31] MEDS: SIMVASTATIN 10 MG TABLET PO SCH (20:10)
[2019-01-31] MEDS: OLANZapine 10 MG TABLET PO SCH (20:10)
[2019-01-31] MEDS: DIVALPROEX SODIUM 500 MG DR TABLET PO SCH (20:10)
[2019-01-31 22:38] VITALS: BP 128/84
[2019-01-31] MEDS: IBUPROFEN 400 MG TABLET PO PRN (22:38)
[2019-02-01] MEDS: LEVOTHYROXINE SODIUM 75 MCG TABLET PO SCH (05:46)
[2019-02-01 08:12] VITALS: BP 137/89
[2019-02-01] MEDS: OMEGA-3/DHA/EPA/FISH OIL 1,000 MG CAPSULE PO SCH (08:18)
[2019-02-01] MEDS: BuPROPion HCL XL 150 MG ER TABLET PO SCH (08:18)
[2019-02-01] MEDS: NICOTINE 14 MG/24 HOUR PATCH TD SCH (08:19)
[2019-02-01] MEDS: BENZTROPINE MESYLATE 2 MG TABLET PO SCH ×2 (08:19→16:19)
[2019-02-01] MEDS: OMEPRAZOLE 20 MG CAPSULE PO SCH (08:19)
[2019-02-01 16:23] VITALS: BP 121/77
[2019-02-01] MEDS: OLANZapine 10 MG TABLET PO SCH (20:47)
[2019-02-01] MEDS: DIVALPROEX SODIUM 500 MG DR TABLET PO SCH (20:47)
[2019-02-01] MEDS: SIMVASTATIN 10 MG TABLET PO SCH (20:48)
[2019-02-01] MEDS: ACETAMINOPHEN 325 MG TABLET PO PRN (21:59)
[2019-02-01 22:59] VITALS: BP 122/89
[2019-02-02 00:02] VITALS: BP 134/70
[2019-02-02] MEDS: LEVOTHYROXINE SODIUM 75 MCG TABLET PO SCH (06:23)
[2019-02-02] MEDS: BENZTROPINE MESYLATE 2 MG TABLET PO SCH ×2 (08:13→16:12)
[2019-02-02] MEDS: BuPROPion HCL XL 150 MG ER TABLET PO SCH (08:13)
[2019-02-02] MEDS: OMEPRAZOLE 20 MG CAPSULE PO SCH (08:13)
[2019-02-02] MEDS: OMEGA-3/DHA/EPA/FISH OIL 1,000 MG CAPSULE PO SCH (08:13)
[2019-02-02] MEDS: NICOTINE 14 MG/24 HOUR PATCH TD SCH (08:14)
[2019-02-02] MEDS: ACETAMINOPHEN 325 MG TABLET PO PRN ×2 (09:24→18:31)
[2019-02-02] MEDS ORDERED: ARIPiprazole LAUROXIL ER SUSPENSION 882 MG/3.2 ML SYRINGE IM ONE (11:00)
[2019-02-02] MEDS ORDERED: OMEP10SU2 PO (12:34)
[2019-02-02] MEDS ORDERED: OLAN10TA3 PO (12:35)
[2019-02-02] MEDS ORDERED: OMEP20 PO (12:44)
[2019-02-02 16:23] VITALS: BP 124/81
[2019-02-03] MEDS ORDERED: OMEPRAZOLE 20 MG CAPSULE PO SCH (09:00)
== END 2019-02-02 19:29 | disposition home or self-care (01) | DRG 885 ==
LOC: B2X 01:30
PROVIDERS: ADMIT Psychiatry & Neurology Child & Adolescent Psychiatry; ATTEND Psychiatry & Neurology Child & Adolescent Psychiatry
DX: F20.0 Paranoid schizophrenia (principal); F12.90 Cannabis use, unspecified, uncomplicated; F10.10 Alcohol abuse, uncomplicated; E78.5 Hyperlipidemia, unspecified; E66.9 Obesity, unspecified; E03.9 Hypothyroidism, unspecified; D72.829 Elevated white blood cell count, unspecified; G47.00 Insomnia, unspecified; K21.9 Gastro-esophageal reflux disease without esophagitis; K59.00 Constipation, unspecified; F41.9 Anxiety disorder, unspecified; F32.9 Major depressive disorder, single episode, unspecified; F17.200 Nicotine dependence, unspecified, uncomplicated; R76.11 Nonspecific reaction to tuberculin skin test without active tuberculosis; Z59.0 Homelessness; Z91.19 Patient's noncompliance with other medical treatment and regimen; G44.209 Tension-type headache, unspecified, not intractable
CPT/HCPCS: 80307; 83036; 84443; 87081; 87389; 90686

== ENCOUNTER 2018-11-17 16:39 | Emergency (ER) | payer MEDICARE, OTHER ==
[~2018-11-17] VITALS: Ht 170.2 cm; Wt 109.1 kg
[2018-11-17 19:01] VITALS: BP 144/70
[2018-11-17] MEDS ORDERED: DiphenhydrAMINE HCL 50 MG/ML VIAL IM ONE (19:15)
[2018-11-17] MEDS ORDERED: LORazepam 2 MG/ML VIAL IM ONE (19:15)
[2018-11-17] MEDS ORDERED: HALOPERIDOL LACTATE 5 MG/ML VIAL IM ONE (19:15)
== END 2018-11-17 19:35 | disposition home or self-care (01) ==
LOC: EMS 16:40
DX: R45.1 Restlessness and agitation (principal); Z88.5 Allergy status to narcotic agent
CPT/HCPCS: 71045; 96372; 99283; J1200; J1630; J2060